=== PATIENT | female | born 1930 | race Two or more races ===

== ENCOUNTER 2017-01-30 17:54 | Emergency (ER) | payer OTHER, MEDICAID ==
[2017-01-30 18:03] VITALS: TEMP 98.2
[2017-01-30] MEDS ORDERED: NS 1,000 ML IV ONE ×2 (18:31→19:26)
--- NOTE | 2017-01-30 18:35 | EDPHY ---
H & P Stated Complaint: BGL 600 at [facility] Time Seen by Provider: 01/30/17 18:15 HPI/ROS: CHIEF COMPLAINT: High blood sugar HISTORY OF PRESENT ILLNESS: The patient is a 86-year-old female who was sent to the emergency department by Felice Sinah for high glucose. She states she has had a flu for the last week although her symptoms are now improving. She feels weak and achy and dizzy today. Her glucose was too high to read on the glucometer at the clinic up. She takes Levemir 12 units every morning. She has not had a fever. She denies chest pain. She does have a history of peripheral vascular disease and is status post left fem-pop bypass. Also hypertension and hypothyroidism. REVIEW OF SYSTEMS: Constitutional: See HPI EENTM: denies: blurred vision, double vision, nose congestion Respiratory: denies: cough, shortness of breath Cardiac: denies: chest pain, irregular heart rate, lightheadedness, palpitations Gastrointestinal/Abdominal: denies: abdominal pain, diarrhea, nausea, vomiting, blood streaked stools Genitourinary: denies: dysuria, frequency, hematuria, pain Musculoskeletal the see HPI Skin: denies: lesions, rash, jaundice, bruising Neurological: denies: headache, numbness, paresthesia, tingling, dizziness, weakness Hematologic/Lymphatic: denies: blood clots, easy bleeding, easy bruising Immunologic/allergic: denies: HIV/AIDS, transplant EXAM: GENERAL: The tearful, well-nourished and in no acute distress. HEAD: Atraumatic, normocephalic. EYES: Pupils equal round and reactive to light, extraocular movements intact, sclera anicteric, conjunctiva are normal. ENT: TMs normal, nares patent, oropharynx clear without exudates. Moist mucous membranes. NECK: Normal range of motion, supple without lymphadenopathy or JVD. LUNGS: Breath sounds clear to auscultation bilaterally and equal. No wheezes rales or rhonchi. HEART: Regular rate and rhythm without murmurs, rubs or gallops. ABDOMEN: Soft, nontender, normoactive bowel sounds. No guarding, no rebound. No masses appreciated. BACK: No CVA tenderness, no spinal tenderness, step-offs or deformities EXTREMITIES: Normal range of motion, no pitting or edema. No clubbing or cyanosis. NEUROLOGICAL: Cranial nerves II through XII grossly intact. Normal speech, normal gait. 5/5 strength, normal movement in all extremities, normal sensation PSYCH: He said SKIN: Warm, dry, normal turgor, no visible rashes or lesions. Source: Patient Exam Limitations: No limitations - Personal History Tetanus Vaccine Date: WITHIN 10 Y - Medical/Surgical History Hx Asthma: No Hx Chronic Respiratory Disease: No Hx Diabetes: Yes Hx Cardiac Disease: Yes Hx Renal Disease: No Hx Cirrhosis: No Hx Alcoholism: No Hx HIV/AIDS: No Hx Splenectomy or Spleen Trauma: No Other PMH: ortho surgery, hypothryroid, HTN, gastritis, diabetes - Family History Significant Family History: Diabetes, Hypertension - Social History Smoking Status: Never smoked Alcohol Use: Sober Drug Use: None Constitutional: Initial Vital Signs Temperature (C) 36.8 C 01/30/17 18:00 Heart Rate 85 01/30/17 18:00 Respiratory Rate 18 01/30/17 18:00 Blood Pressure 227/92 H 01/30/17 18:00 O2 Sat (%) 97 01/30/17 18:00 O2 Delivery Mode Room Air Allergies/Adverse Reactions: No Known Allergies Allergy (Verified 04/17/15 15:17) Home Medications: Medication Instructions Recorded Aspirin [Aspirin 81mg] 81 mg PO DAILY 11/18/11 Atorvastatin Calcium [Lipitor] 40 mg PO DAILY 11/18/11 GLIPIZIDE 10 mg PO BID 11/18/11 Levothyroxine 75 mcg PO DAILY@1000 11/18/11 [Levothyroxine,Synthroid] Lisinopril 20 mg PO DAILY 11/18/11 metFORMIN HCL [Glucophage 500 mg 1,000 mg PO BID 11/18/11 (*)] Calcitonin [Fortical (RX)] 200 units NASAL DAILY 02/28/12 Cephalexin [Keflex] 500 mg PO QID 10 Days 12/23/13 Pepcid 20 MG (OTC) 12/23/13 Citalopram 01/30/17 Injectable Insulin, Unknown 01/30/17 Medical Decision Making ED Course/Re-evaluation: Patient's glucose is elevated but she is not in DKA. I will treat with insulin and hydration and observe. 9:05 p.m. the patient is feeling much better. She no longer has body aches or nausea. She does have a mild headache. I will treat her with Toradol and will road test. I encouraged her to resume her normal insulin schedule tomorrow morning. She and her understand agree with this plan. The conversation was had with a professional vaccine customer representative. I will Prepare paperwork for discharge but Dr. Estrada is aware should any problems arise. Differential Diagnosis: Partial list of the Differential diagnosis considered include but were not limited to; hyperglycemia, dehydration, headache and although unlikely based on the history and physical exam, I also considered sepsis, infection, DKA, hyperosmolar. I discussed these differential diagnoses and the plan with the patient as well as the usual and expected course. The patient understands that the diagnosis is provisional and that in medicine we are not always correct and that further workup is often warranted. Usual and customary warnings were given. All of the patient's questions were answered. The patient was instructed to return to the emergency department should the symptoms at all worsen or return, otherwise to followup with the physician as we discussed. - Data Points Laboratory Results: Laboratory Results 01/30/17 18:35 01/30/17 18:35 01/30/17 01/30/17 20:32 18:35 POC Hgb 11.6 gm/dL L gm/dL (12.3-15.9) POC Hct 34 % L % (35.5-47.5) POC Sodium 146 mEq/L H mEq/L (134-144) Sodium 138 mEq/L mEq/L (134-144) POC Potassium 3.1 mEq/L L mEq/L (3.3-5.0) Potassium 4.4 mEq/L mEq/L (3.5-5.2) POC Chloride 110 mEq/L H mEq/L (96-108) Chloride 101 mEq/L mEq/L (97-110) Carbon Dioxide 22 mEq/l mEq/l (22-31) Anion Gap 15 mEq/L mEq/L (8-16) POC BUN 20 mg/dL mg/dL (7-23) BUN 27 mg/dL H mg/dL (7-23) Creatinine 0.6 mg/dL mg/dL (0.6-1.0) POC Creatinine 0.4 mg/dL L mg/dL (0.6-1.2) Estimated GFR > 60 Glucose 441 mg/dL H mg/dL (70-100) POC Glucose 134 mg/dL H mg/dL (70-100) Calcium 10.2 mg/dL mg/dL (8.5-10.4) Phosphorus 3.4 mg/dL mg/dL (2.5-4.5) Magnesium 1.6 mg/dL mg/dL (1.6-2.3) Beta-Hydroxybutyrate 0.39 mmol/L H mmol/L (0.02-0.27) TSH 0.038 uIU/mL L uIU/mL (0.465-4.680) Free T4 1.94 ng/dL ng/dL (0.59-2.19) Medications Given: Discontinued Medications Sodium Chloride (Ns) 1,000 mls @ 0 mls/hr IV ONCE ONE PRN Reason: Wide Open Stop: 01/30/17 18:32 Last Admin: 01/30/17 18:36 Dose: 1,000 mls Sodium Chloride (Ns) 1,000 mls @ 0 mls/hr IV ONCE ONE PRN Reason: Wide Open Stop: 01/30/17 19:27 Last Admin: 01/30/17 19:30 Dose: 1,000 mls Insulin Human Regular (Humulin R) 10 unit IVP EDNOW ONE Stop: 01/30/17 19:27 Last Admin: 01/30/17 19:31 Dose: 10 units Ketorolac Tromethamine (Toradol) 15 mg IVP EDNOW ONE Stop: 01/30/17 21:07 Last Admin: 01/30/17 21:15 Dose: 15 mg Lidocaine (Lidoderm 5%) 1 ea TD ONCE ONE Stop: 01/30/17 21:17 Last Admin: 01/30/17 21:35 Dose: 1 ea Miscellaneous Information (Patch Removal) 1 ea TD DAILY21 YOLI Stop: 07/30/17 20:59 Last Admin: 01/30/17 21:29 Dose: 1 ea Ondansetron HCl (Zofran) 4 mg IVP EDNOW ONE Stop: 01/30/17 21:07 Last Admin: 01/30/17 21:15 Dose: 4 mg Point of Care Test Results: 01/30/17 20:32 POC Sodium 146 H POC Potassium 3.1 L POC Chloride 110 H POC BUN 20 POC Creatinine 0.4 L POC Glucose 134 H Departure - Departure Disposition: Home, Routine, Self-Care Clinical Impression: Hyperglycemia due to type 2 diabetes mellitus Qualifiers: Diabetes mellitus nursing home insulin use: with adjunct faculty for medical terminology use Qualified Code(s): E11.65 - Type 2 diabetes mellitus with hyperglycemia; Z79.4 - halfway (current ) use of insulin Condition: Fair Instructions: Diabetic Hyperglycemia (ED) Referrals: Patient,NotPresent [Primary Care Provider] - As per Instructions Felice Sinha MD [Medical Doctor] - As per Instructions
[2017-01-30 18:43] LABS: % IMMATURE GRANULYOCYTES 0.3 % (0.0-1.1); ABSOLUTE IMMATURE GRANULOCYTES 0.02 10^3/uL (0.00-0.10); ADD DIFF? NO; ADD MORPH? NO; ADD SCAN? NO; ATYPICAL LYMPHOCYTE FLAG 20 (0-99); FRAGMENT RBC FLAG 0 (0-99); HEMATOCRIT 41.5 % (38.0-47.0); HEMOGLOBIN 14.6 g/dL (12.6-16.3); LEFT SHIFT FLG 0 (0-99); LIPEMIA HEMOLYSIS FLAG 90 (0-99); MEAN CELL HEMOGLOBIN 31.5 pg (27.9-34.1); MEAN CELL HEMOGLOBIN CONCENTR. 35.2 g/dL (32.4-36.7); MEAN CELL VOLUME 89.6 fL (81.5-99.8); MEAN PLATELET VOLUME 9.7 fL (8.7-11.7); PLATELET CLUMPS FLAG 0 (0-99); PLATELET COUNT 258 10^3/uL (150-400); RED BLOOD CELL COUNT 4.63 10^6/uL (4.18-5.33); RED CELL DISTRIBUTION WIDTH 13.1 % (11.5-15.2)
[2017-01-30 19:00] VITALS: O2SAT 96
[2017-01-30 19:01] LABS: ANION GAP 15 mEq/L (8-16); CALCIUM 10.2 mg/dL (8.5-10.4); CARBON DIOXIDE 22 mEq/l (22-31); CHLORIDE 101 mEq/L (97-110); CREATININE 0.6 mg/dL (0.6-1.0); GLOMERULAR FILTRATION RATE > 60; GLUCOSE 441 mg/dL (70-100); MAGNESIUM 1.6 mg/dL (1.6-2.3); POTASSIUM 4.4 mEq/L (3.5-5.2); SODIUM 138 mEq/L (134-144)
[2017-01-30] MEDS ORDERED: INSULIN REGULAR HUMAN 100 UNIT/ML IVP ONE (19:26)
[2017-01-30] MEDS ORDERED: INSULIN REGULAR HUMAN 100 UNIT/ML ONE (19:28)
[2017-01-30 20:40] LABS: B-HYDROXYBUTYRATE 0.39 mmol/L (0.02-0.27)
[2017-01-30 20:53] VITALS: PULSE 66; RESP 16
[2017-01-30] MEDS ORDERED: ONDANSETRON 4 MG/2 ML VIAL ONE (21:06)
[2017-01-30] MEDS ORDERED: KETOROLAC 15 MG/1 ML SDV ONE (21:06)
[2017-01-30] MEDS ORDERED: KETOROLAC 30 MG/1 ML SDV IVP ONE (21:06)
[2017-01-30] MEDS ORDERED: ONDANSETRON 4 MG/2 ML VIAL IVP ONE (21:06)
[2017-01-30] MEDS ORDERED: LIDOCAINE 5% 1 EA PATCH TD ONE (21:16)
[2017-01-30 21:31] VITALS: BP 182/79
[2017-01-31] MEDS ORDERED: PATCH REMOVAL 1 EA PATCH TD ONE (09:00)
[2017-01-31] MEDS ORDERED: PATCH REMOVAL 1 EA PATCH TD SCH (21:00)
== END 2017-01-30 21:41 | disposition home or self-care (01) ==
DX: E11.65 Type 2 diabetes mellitus with hyperglycemia (principal); I10 Essential (primary) hypertension; Z79.82 Long term (current) use of aspirin; Z79.4 Long term (current) use of insulin
CPT/HCPCS: 96361; 96374; 96375; 99284; J1815; J1885; J2405; 82947-QW

== ENCOUNTER 2019-02-19 12:44 | Emergency (ER) | payer OTHER, MEDICAID ==
--- NOTE | 2019-02-19 13:21 | EDPHY ---
H & P Time Seen by Provider: 02/19/19 13:06 HPI/ROS: Chief complaint. Elevated blood sugar HPI. Patient is a 88-year-old insulin-dependent diabetic. She takes metformin as well as insulin. She does not know her dose. She saw her physician in the office yesterday and blood work apparently showed elevated blood sugar and she was called and told to come to the emergency department this morning. She otherwise has no complaints. Apparently her PCP wanted her heart to be checked out as well. Patient has no chest discomfort or shortness of breath. Occasional abdominal bloating but no abdominal pain or vomiting or diarrhea. No fever or cough. ROS 10 systems were reviewed and negative with the exception of the elements mentioned in the history of present illness Past Medical/Surgical History: Hypothyroid, hypertension, gastritis, diabetes Social History: , nonsmoker, no alcohol Smoking Status: Never smoked Physical Exam: General Appearance: Alert pleasant well-developed female mild distress vital signs are stable Eyes: Pupils equal and round no pallor or injection. ENT, Mouth: Mucous membranes are moist. Respiratory: There are no retractions, lungs are clear to auscultation. Cardiovascular: Regular rate and rhythm. Gastrointestinal: Abdomen is soft and nontender, no masses, bowel sounds normal. Neurological: Awake and alert, sensory and motor exams grossly normal. Skin: Warm and dry, no rashes. Musculoskeletal: Neck is supple nontender. Extremities symmetrical, full range of motion. Psychiatric: Patient is oriented X 3, there is no agitation. Constitutional: Initial Vital Signs Heart Rate 71 02/19/19 12:45 Respiratory Rate 22 H 02/19/19 12:45 Blood Pressure 152/89 H 02/19/19 12:45 O2 Sat (%) 94 02/19/19 12:45 O2 Delivery Mode Room Air Allergies/Adverse Reactions: No Known Allergies Allergy (Verified 05/25/18 13:01) Home Medications: Medication Instructions Recorded Aspirin [Aspirin 81mg] 81 mg PO DAILY 11/18/11 Atorvastatin Calcium [Lipitor] 40 mg PO DAILY 11/18/11 GLIPIZIDE 10 mg PO BID 11/18/11 Levothyroxine 75 mcg PO DAILY@1000 11/18/11 [Levothyroxine,Synthroid] Lisinopril 20 mg PO DAILY 11/18/11 metFORMIN HCL [Glucophage 500 mg 1,000 mg PO BID 11/18/11 (*)] Calcitonin [Fortical (RX)] 200 units NASAL DAILY 02/28/12 Pepcid 20 MG (OTC) 12/23/13 Citalopram 01/30/17 Injectable Insulin, Unknown 01/30/17 Cephalexin [Keflex (*)] 500 mg PO QID #40 cap 05/25/18 Hydrocodone/APAP 5/325 [[place] 1 - 2 tab PO Q4H PRN #11 tab 05/25/18 5/325 (*)] Medical Decision Making - Diagnostics EKG Interpretation: EKG interpreted by me shows normal sinus rhythm normal interval. Left axis deviation. QRS is normal there is slight lateral ST depression. No elevation. No ectopy. Rate is [address] depression in lateral leads is new since last EKG December 2013 Procedures: IV normal saline Point of care glucose is 116 in the ED customer sales distributor is Saleem ED Course/Re-evaluation: Re-evaluation at 2:35 p.m. With customer sales distributor. The patient the lime supervisor the and I discussed laboratory evaluation. We discussed treatment plan including recommendation for cardiology evaluation for mild EKG changes. Otherwise you do not find any acute medical problem and I think the patient can be safely discharged. They expressed understanding and agreement Differential Diagnosis: I considered hyper and hypoglycemia. I considered DKA. Patient has mild changes on her EKG but negative troponin and no chest pain. Plan is cardiology follow-up - Data Points Laboratory Results: Laboratory Results 02/19/19 13:48 02/19/19 13:48 02/19/19 02/19/19 02/19/19 14:07 13:48 13:48 WBC 4.33 10^3/uL 10^3/uL (3.80-9.50) RBC 4.32 10^6/uL 10^6/uL (4.18-5.33) Hgb 12.3 g/dL L g/dL (12.6-16.3) Hct 39.3 % % (38.0-47.0) MCV 91.0 fL fL (81.5-99.8) MCH 28.5 pg pg (27.9-34.1) MCHC 31.3 g/dL L g/dL (32.4-36.7) RDW 14.6 % % (11.5-15.2) Plt Count 214 10^3/uL 10^3/uL (150-400) MPV 10.2 fL fL (8.7-11.7) Neut % (Auto) 62.1 % % (39.3-74.2) Lymph % (Auto) 27.3 % % (15.0-45.0) [place] % (Auto) 8.1 % % (4.5-13.0) Eos % (Auto) 1.8 % % (0.6-7.6) Baso % (Auto) 0.5 % % (0.3-1.7) Nucleat RBC Rel Count 0.0 % % (0.0-0.2) Absolute Neuts (auto) 2.69 10^3/uL 10^3/uL (1.70-6.50) Absolute Lymphs (auto) 1.18 10^3/uL 10^3/uL (1.00-3.00) Absolute Monos (auto) 0.35 10^3/uL 10^3/uL (0.30-0.80) Absolute Eos (auto) 0.08 10^3/uL 10^3/uL (0.03-0.40) Absolute Basos (auto) 0.02 10^3/uL 10^3/uL (0.02-0.10) Absolute Nucleated RBC 0.00 10^3/uL 10^3/uL (0-0.01) Immature Gran % 0.2 % % (0.0-1.1) Immature Gran # 0.01 10^3/uL 10^3/uL (0.00-0.10) Sodium 137 mEq/L mEq/L (135-145) Potassium 4.0 mEq/L mEq/L (3.5-5.2) Chloride 107 mEq/L mEq/L (97-110) Carbon Dioxide 19 mEq/l L mEq/l (22-31) Anion Gap 11 mEq/L mEq/L (6-14) BUN 20 mg/dL mg/dL (7-23) Creatinine 0.8 mg/dL mg/dL (0.6-1.0) Estimated GFR > 60 Glucose 98 mg/dL mg/dL (70-100) POC Glucose Calcium 9.0 mg/dL mg/dL (8.5-10.4) POC Troponin I 0.03 ng/mL ng/mL (0.00-0.08) 02/19/19 13:16 WBC RBC Hgb Hct MCV MCH MCHC RDW Plt Count MPV Neut % (Auto) Lymph % (Auto) [place] % (Auto) Eos % (Auto) Baso % (Auto) Nucleat RBC Rel Count Absolute Neuts (auto) Absolute Lymphs (auto) Absolute Monos (auto) Absolute Eos (auto) Absolute Basos (auto) Absolute Nucleated RBC Immature Gran % Immature Gran # Sodium Potassium Chloride Carbon Dioxide Anion Gap BUN Creatinine Estimated GFR Glucose POC Glucose 116 mg/dL H mg/dL (70-100) Calcium POC Troponin I Medications Given: Discontinued Medications Sodium Chloride (Ns) 1,000 mls @ 0 mls/hr IV EDNOW ONE; Wide Open PRN Reason: Protocol Stop: 02/19/19 14:02 Last Admin: 02/19/19 14:02 Dose: 1,000 mls Point of Care Test Results: Chemistry 02/19/19 02/19/19 14:07 13:16 POC Glucose 116 mg/dL H mg/dL (70-100) POC Troponin I 0.03 ng/mL ng/mL (0.00-0.08) Departure - Departure Disposition: Home, Routine, Self-Care Clinical Impression: Diabetes Qualifiers: Diabetes mellitus type: other specified (including LV) Diabetes mellitus retirement insulin use: unspecified retirement insulin use status Diabetes mellitus complication status: without complication Qualified Code(s): E13.9 - Other specified diabetes mellitus without complications Condition: Good Instructions: Hypoglycemia in a Person with Diabetes (ED) Additional Instructions: Continue medications and insulin as prescribed Make sure you eat after taking insulin and diabetes medication Return for worsening symptoms You have slight changes in your EKG compared with an EKG that was performed several years ago. I would like for you to follow up with Cardiology. Referrals: [facility] [Other] - 1-2 days without fail Seymour Gan MD [Medical Doctor] - 2-3 days, call for appt.
[2019-02-19] MEDS ORDERED: NS 1,000 ML IV ONE (14:01)
--- NOTE | 2019-02-19 14:02 | CPEKG ---
Test Reason : OPEN Blood Pressure : / mmHG Vent. Rate : 060 BPM Atrial Rate : 060 BPM P-R Int : 157 ms QRS Dur : 091 ms QT Int : 511 ms P-R-T Axes : 031 005 045 degrees QTc Int : 511 ms Sinus rhythm Repol abnrm suggests ischemia, anterolateral Prolonged QT interval Confirmed by Robin Cassidy ([id number]) on 02/19/2019 2:01:55 PM Referred By: ROBIN CASSIDY Confirmed By:Robin Cassidy
[2019-02-19 14:17] LABS: PLATELET COUNT 214 10^3/uL (150-400)
[2019-02-19 15:15] VITALS: BP 158/109
== END 2019-02-19 15:15 | disposition home or self-care (01) ==
DX: E11.9 Type 2 diabetes mellitus without complications (principal); R94.31 Abnormal electrocardiogram [ECG] [EKG]; E86.9 Volume depletion, unspecified; E03.9 Hypothyroidism, unspecified; I10 Essential (primary) hypertension; Z79.4 Long term (current) use of insulin; Z79.84 Long term (current) use of oral hypoglycemic drugs
CPT/HCPCS: 84484-ER

== ENCOUNTER 2019-02-26 11:46 | Inpatient (IN) | payer OTHER, MEDICAID ==
[2019-02-26] MEDS ORDERED: ONDANSETRON 4 MG/2 ML VIAL IVP PRN (12:17)
[2019-02-26] MEDS ORDERED: ONDANSETRON DISINTEGRATING 4 MG TAB PO PRN (12:17)
--- NOTE | 2019-02-26 12:59 | PDGENHP ---
History and Physical - Chief Complaint Hyperglycemia, bilateral lower extremity edema - History of Present Illness This is an 88-year-old female with history of insulin dependent diabetes, hypothyroidism, hypertension, and gastritis presenting as a direct admit from [facility] with concerns of bilateral lower extremity edema, nausea, dizziness and lightheadedness. She was seen in the emergency room on February 19 because apparently she saw her physician on February 18 with blood work showed elevated blood sugar and she was told to come to emergency room. Apparently at the same time her primary care doctor at [facility] wanted her heart to be checked out as well. During this emergency room visit an EKG was performed which showed a normal sinus rhythm with a left axis deviation and a slight lateral ST depression compared to her EKG from December 2013. It was decided during this visit for her to follow up with Cardiology which took place today, which they sent her here for further testing for noted above symptoms. She is primarily Jordanian-speaking, I communicated with the patient via, Lissette, an court interpreter. Patient denies chest pain or palpitations. She endorses 3 days worth of abdominal bloating and a nonpainful epigastric pulsating sensation; as well as lightheadedness and dizziness as if the room is spinning while she is upright. She also noticed bilateral lower extremity edema with the right side being worse than the left side; she denies cough. She also has been short of breath at all times; denies orthopnea and does not wear oxygen supplementation. She is being admitted for further workup, treatment and monitoring. History Information - Allergies/Home Medication List Allergies/Adverse Reactions: No Known Allergies Allergy (Verified 05/25/18 13:01) Home Medications: GLIPIZIDE 10 mg PO DAILY 11/18/11 [Last Taken 02/25/19] Calcitonin [Fortical (RX)] 200 units NASAL DAILY 02/28/12 [Last Taken 02/26/19] Famotidine [Pepcid 20 MG (*)] 20 mg PO DAILY 12/23/13 [Last Taken 02/26/19] Citalopram Hydrobromide [celeXA 10 MG] 10 mg PO DAILY 01/30/17 [Last Taken 02/26] Insulin Detemir [Levemir] 7 units SQ HS 02/26/19 [Last Taken 02/25/19] Insulin Detemir [Levemir] 17 unit SQ DAILY 02/26/19 [Last Taken 02/26/19] Levothyroxine [Synthroid 50 mcg (*)] 50 mcg PO DAILY06 02/26/19 [Last Taken ] Lisinopril [Zestril 20 mg (*)] 20 mg PO DAILY 02/26/19 [Last Taken 02/26/19] I have personally reviewed and updated: family history, medical history, social history, surgical history Past Medical History: Hypothyroidism, hypertension, gastritis, insulin- dependent diabetes - Surgical History Reports: no pertinent surgical hx - Family History Positive for: cancer (Mother had liver cancer; father by what is thought to be bad cold) - Social History Smoking Status: Never smoked Alcohol Use: None Drug Use: None Additional social history: She is , she lives in apartment with her son who was at bedside today Review of Systems Review of Systems: ROS: 10pt was reviewed & negative except for what was stated in HPI & below Physical Exam Physical Exam: Lab data and imaging were reviewed. Blood cell count: 6.35 Hemoglobin hematocrit: 12.6 and 38.9 Platelet count: 216 Sodium: 132 Potassium: 4.2 Chloride: 101 Carbon dioxide: 24 BUN/Cr: 15/0.7 TSH: 28.200, does have a history of hypothyroidism and is currently on 50 mcg of levothyroxine Temp Pulse Resp BP Pulse Ox 36.4 C 69 20 168/84 H 97 02/26/19 12:38 02/26/19 12:38 02/26/19 12:38 02/26/19 12:38 02/26/19 12:38 Constitutional: appears nourished, not in pain, other (Overweight, pleasant and cooperative female) Eyes: PERRL, anicteric sclera, EOMI Ears, Nose, Mouth, Throat: moist mucous membranes, hearing normal, ears appear normal, no oral mucosal ulcers Cardiovascular: regular rate and rhythym, no murmur, rub, or gallop, edema (Non- pitting edema BLE) Peripheral Pulses: 2+: dorsalis-pedis (R), dorsalis-pedis (L) Respiratory: no respiratory distress, no rales or rhonchi, clear to auscultation Gastrointestinal: normoactive bowel sounds, soft, non-tender abdomen, no palpable masses Genitourinary: no bladder fullness, no bladder tenderness Skin: warm, normal color, no rashes or abrasions, no fluctuance, no induration, No mottled Musculoskeletal: full muscle strength, no muscle tenderness, normal joint ROM, no joint effusions Neurologic: AAOx3, sensation intact bilaterally, CN II-XII Intact Psychiatric: interacting appropriately, not anxious, not encephalopathic, thought process linear Lymph, Heme, Immunologic: no cervical LAD, no supraclavicular LAD Lab Data & Imaging Review 02/26/19 13:00 02/26/19 13:00 Assessment & Plan Plan: This is an 88-year-old female with history of insulin-dependent diabetes and hypertension presenting as a direct admit from the [facility] with 2- 3 days worth of bilateral lower extremity edema, shortness of breath at all times, and lightheadedness while upright. Her vital signs are the following: Blood pressure 168/84, heart rate 69, respirations 20, temperature 36.4 degrees , and oxygen saturation at 97% on room air. #Bilateral lower extremity edema #Shortness of breath #Lightheadedness #IDDM #HTN #Hypothyroidism #Hyponatremia Plan: -Cardiology consulted -Orthostatic vitals 1 time -Echo complete pending -Plan for Lexiscan tomorrow -Lipid panel in the morning -Insulin sliding scale in house, glucose checks 3 times before meals; holding oral glycemic medications for now; A1c is pending -Physical therapy and Occupational therapy to evaluate and treat patient -Continuing home medications including Levemir, levothyroxine, lisinopril, Pepcid, and Celexa; holding glipizide -TSH 28.200; checking free T4 and total T3 -Mild hyponatremia (132); encourage fluids and food with sodium and will recheck sodium and creatinine in the morning Diet: Cardiac VTE ppx: Lovenox subq Code: Full Dispo: Admit to obs
[2019-02-26 13:16] LABS: PLATELET COUNT 216 10^3/uL (150-400)
--- NOTE | 2019-02-26 13:28 | ASMTCMCOM ---
CM Note CM Note Notes: Pt is a 88 y/o female admitted for hyperglycemia and bilateral lower extremity edema. Pt is tajik speaking only and requires an science interpreter. Therapies have been ordered and awaiting recommendations. Cards has been consulted. Needs are TBD at this time. CM to follow. Plan: TBD Date Signed: 02/26/2019 01:28 PM Electronically Signed By:CATHERINE Claudio
[2019-02-26] MEDS: D50W 25 GM/50 ML SYR IVP PRN (14:34)
[2019-02-26] MEDS ORDERED: FUROSEMIDE 40 MG/4 ML VIAL IVP ONE (15:11)
--- NOTE | 2019-02-26 15:23 | ASMTCMCOM ---
CM Note CM Note Notes: CM met w/ pt, pts two daughters who live out of town and Lissette, the home economics expert. Pt lives w/ her son. The daughters are requesting that pt has a JIGSAWYER to help bathe pt. They are agreeable to a referral sent to [facility]. Referral sent to [facility] and they are able to accept. CM sent a referral to [facility]. Pts family is interested in 5 free meals on wheels after this hospitalization. Therapies are pending. Family may be curious about meal preparation. CM could apply for HCBS services but informed them that it takes a month or two to establish services. Therapies are pending. CM informed family that pt may need SNF but it is unclear at this time. CM to follow. Date Signed: 02/26/2019 03:22 PM Electronically Signed By:CATHERINE Claudio
--- NOTE | 2019-02-26 15:32 | PDCARPN ---
Cardiology Progress Note Chief Complaint: likely CHF Assessment/Plan: Assessment: 88F PMH PVD, DM, htn, hypoT, direct admitted after being seen at [facility] today. PVD history includes L fem-pop [place] [address] Amado. P/w 3 weeks of worsening dyspnea, pnd/orthopnea, SHIRA. Chart reviewed. Pt new to me. 12-lead ECG from 02/20/19 shows SR, ZAKIA, QTc 511, questionable inferior Qs, and diffuse ST-T w abnormalities. Rales in bilateral bases #. likely CHF: echo and NTpBNP pending start IV lasix obtain CXR agree with MPI in AM #. PVD: no symptoms of claudications, nonhealing wounds/ulcers start ASA check lipids #. htn: BP appears poorly controlled given prolonged QTc, start Metoprolol succinate today Plan: - Start Lasix - Await further testing 02/26/19 15:25 Subjective: + DAVIES, pnd/orthopnea, SHIRA. Ate argentine food last night. Symptom onset 2-3 weeks with worsening in past 3 days. Denies claudications but gets short of breath on minimal exertion. No nonhealing ulcers. No f/c, dysuria, cough, cp. Objective: Vital Signs (8 Hrs) Temp Pulse Pulse Pulse Pulse Resp BP 02/26/19 13:18 97.2 F 69 79 77 69 16 157/79 H 02/26/19 12:38 97.5 F 69 20 168/84 H BP BP BP Pulse Ox 02/26/19 13:18 155/76 H 162/90 H 157/79 H 93 02/26/19 12:38 97 Intake/Output (24 Hrs) 02/25/19 02/26/19 02/27/19 05:59 05:59 05:59 Other: Weight 51.8 kg Result Diagrams: 02/26/19 13:00 02/26/19 13:00 ICD10 Worksheet Patient Problems: Problems Problem Status Onset Hyperglycemia due to type 2 diabetes mellitus Acute
--- NOTE | 2019-02-26 16:09 | HOSPPROG ---
Hospitalist Progress Note Assessment/Plan: patient seen/examined/discussed w KAYDEN Montalvo. 88 yo F w dm/hypothyroid here w edema 1. echo pending 2. increase levothyroxine 3. diurese Objective: Vital Signs Temp Pulse Resp BP Pulse Ox 36.2 C 69 16 157/79 H 93 02/26/19 13:18 02/26/19 13:18 02/26/19 13:18 02/26/19 13:18 02/26/19 13:18 Laboratory Results 02/26/19 13:00 02/26/19 13:00 ICD10 Worksheet Patient Problems: Problems Problem Status Onset Hyperglycemia due to type 2 diabetes mellitus Acute
[2019-02-26] MEDS: ASPIRIN EC 81 MG TAB PO SCH (16:38)
[2019-02-26] MEDS: METOPROLOL SUCCINATE XR 25 MG TAB PO SCH (16:38)
--- NOTE | 2019-02-26 17:31 | ECHO ---
[email or web address] [address] Main: [phone] Echocardiography Examination Transthoracic Name: UMBERTO ALMANZAR MR#: [id number] Study Date: 02/26/2019 Study Time: 01:39 PM Date of : 1930 Age: 88 year(s) Height: ( ) Weight: ( ) BSA: Gender: Female Examination: Echo Contrast: Image Quality: Adequate Rhythm: Heart Rate: BP: 162 mmHg/90 mmHg Indication: BLE Edema Procedure Staff Referring Physician: Sports Director: Rocío Gonzalez RDCS Reading Physician: Demario Dyer MD Requesting Provider: Ordering Physician: Caitlin Montalov Indication: BLE Edema No height/weight available - patient does not speak Pashto Measurements Chambers AV/MV Label Value Normal Value Label Value Normal Value LVOTd 1.6 cm (1.8cm - 2cm) AV PGmax 5 mmHg LVOT VTI 11.2 cm (18cm - 22cm) AV PGmean 3 mmHg LVDd, 2D 5 cm (3.9cm - 5.3cm) AV Vmax 1.09 m/s LVDs, 2D 3.8 cm (2.1cm - 4cm) TRE (VTI) 0.9 cm2 IVSd, 2D 0.7 cm (0.6cm - 1.1cm) MV E Vmax 1.21 m/s LVPWd, 2D 0.8 cm MV A Vmax 0.63 m/s LVEF, BP 25 % (55% - 70%) MV E/A 1.92 LVEF, 2D 48 % (54% - 74%) MV E/E' lateral 17.5 LVOT PGmean 1 mmHg MV E/E' septal 26.4 (0.45 - 1.25) LVOT Vmean 0.45 m/s MV DT 155 ms RVDd, 2D 2.8 cm (1.9cm - 3.8cm) MV E' septal 0.05 m/s LA Volume, BP 71 ml (22ml - 52ml) MV PHT 0.05 s LADs, 2D 3.8 cm (2.7cm - 3.8cm) MVA PHT 4.9 cm2 RA Area 15.4 cm2 MR Reg. Volume 20 ml Additional Vessels MR Vmax 5.03 m/s Label Value Normal Value MR VTI 163 cm AoAsc 2.8 cm MR (ERO) 0.12 cm2 Patient: UMBERTO ALMANZAR Study Date: 02/26/2019 Page 1 of 3 01:39 PM AoRoot, 2D 2.3 cm (1.4cm - 2.6cm) MV E' lateral 0.07 m/s IVC 1.3 cm (1.2cm - 2.3cm) MR PISA Radius 0.5 cm MV E/E' mean 20.17 MR PISA Alias V. 38.5 cm/s MV PHT 45 ms MV E' mean 0.06 m/s TV/PV Label Value Normal Value TR Pmax 39 mmHg TR Vmax 3.14 m/s PV PGmax 1 mmHg PV Vmax, Caliper 0.57 m/s (0.6m/s - 0.9m/s) Conclusions 1. Left ventricle is normal in size. There is global left ventricular systolic dysfunction. The ejection fraction is 20-25%. 2. The aortic valve is trileaflet. The leaflets are thickened and sclerotic. There is no aortic stenosis. There is trivial aortic insufficiency. 3. there is moderate mitral annular calcification. The leaflets appear structurally normal. There is moderate mitral regurgitation. 4. The pulmonary artery pressure estimate is 40 mm of mercury. 5. There is a trivial pericardial effusion. 6. No old studies for comparison. Findings Left Ventricle: Left ventricle is normal in size. Global hypokinesis of the left ventricle. The ejection fraction, measured by Simpsons method, is 25 %. EF range is estimated at 20 % - 25 %. Left ventricle wall thickness is normal. Grade II Diastolic Dysfunction. Right Atrium: Prominent chiari network. The right atrium is normal in size. Mitral Valve: Mitral valve appears structurally normal. Moderate mitral regurgitation. No mitral valve stenosis. There is mitral annular calcification. Aortic Valve: Aortic leaflets are structurally normal. Trivial aortic regurgitation is present. Aortic leaflets exhibit calcification. Tricuspid Valve: Tricuspid valve leaflets are structurally normal. Moderate tricuspid regurgitation. No tricuspid valve stenosis. Pulmonic Valve: Pulmonic leaflets are structurally normal. Mild pulmonic valve regurgitation is present. Aorta: The aortic root size in 2D measures 2.3 cm. The ascending aorta measures 2.8 cm. Aorta Measurements AoRoot, 2D is 2.3 cm. IVC: The inferior vena cava is normal in size. Pericardium: Trivial pericardial effusion. Exam Details Procedure Ordered: Echo Procedure Status: Routine study Patient: UMBERTO ALMANZAR Study Date: 02/26/2019 Page 2 of 3 01:39 PM Image Quality: Adequate Facility Location: Cardiac Echo 1 (No Signature Object) Patient: UMBERTO ALMANZAR Study Date: 02/26/2019 Page 3 of 3 01:39 PM [id number]
[2019-02-26] MEDS: INSULIN LISPRO 100 UNIT/ML SC SCH (19:00)
[2019-02-27] MEDS ORDERED: LEVOTHYROXINE 50 MCG TAB PO SCH (06:00)
[2019-02-27] MEDS: LEVOTHYROXINE 88 MCG TAB PO SCH (07:09)
[2019-02-27] MEDS: INSULIN LISPRO 100 UNIT/ML SC SCH ×3 (08:50→17:42)
[2019-02-27] MEDS ORDERED: REGADENOSON 0.4 MG/5 ML SYR IVP ONE (09:06)
--- NOTE | 2019-02-27 10:32 | HOSPPROG ---
Hospitalist Progress Note Assessment/Plan: 88 yo F w dm, pvd here w acute systolic heart failure sCHF: etiology of depressed LVEF unclear certainly at risk for ischemic heart disease had nuc today diurese long acting bb started ? cad: nuc pending check lipid panel needs antiplatelet pvd: h/o fem pop dm: hypoglycemic lantus being held not DM 1 follow hypothyroid: underreplaced levothyroxine increased to 88 hyponatremia: hypervolemic hyponatremia follow w diuresis needs low Na diet w chf proph: lmwh dispo: inpt Subjective: case d/w araceli ponce, cardiology PA. echo showed global LV systolic dysfunction, ef 20% Objective: Vital Signs Temp Pulse Resp BP Pulse Ox 36.3 C 57 L 18 119/68 99 02/27/19 08:00 02/27/19 08:00 02/27/19 08:00 02/27/19 08:00 02/27/19 08:00 Laboratory Results 02/26/19 13:00 02/27/19 03:22 02/26/19 02/27/19 02/28/19 05:59 05:59 05:59 Intake Total 650 Output Total 1725 Balance -1075 - Physical Exam Constitutional: no apparent distress, appears nourished Eyes: PERRL, anicteric sclera Ears, Nose, Mouth, Throat: moist mucous membranes, hearing normal Cardiovascular: regular rate and rhythym, no murmur, rub, or gallop, edema, No systolic murmur Respiratory: no respiratory distress, no rales or rhonchi Gastrointestinal: normoactive bowel sounds, soft, non-tender abdomen Genitourinary: no bladder fullness, No malave in urethra Skin: warm, normal color Musculoskeletal: full muscle strength Neurologic: AAOx3 Psychiatric: interacting appropriately ICD10 Worksheet Patient Problems: Problems Problem Status Onset Hyperglycemia due to type 2 diabetes mellitus Acute
--- NOTE | 2019-02-27 10:39 | PDCARST ---
CAR Stress Test Results Type of Stress Test: Lexiscan stress test Indication: SCHF Description of Procedure: After informed consent was obtained, pt was established to ECG, blood pressure, HR and oximetry monitoring. STRESS EKG AND HEMODYNAMIC DATA. Resting heart rate: 59 BPM. Resting ECG: SR. Resting blood pressure: 136/78 mmHg. O2 saturation at rest: 98%. Peak heart rate: 64 BPM. Peak blood pressure: 126/76 mmHg. Arrhythmias: none. Symptoms: The patient experienced no typical symptoms of angina during stress or recovery. Stress/Infusion ECG: No change in rhythm with no significant ST/T wave changes. Stress/infusion O2 saturation: 98% Impression: Uneventful Lexiscan infusion. Conclusion: Await nuclear images.
[2019-02-27] MEDS: LISINOPRIL 20 MG TAB PO SCH (10:41)
[2019-02-27] MEDS: ASPIRIN EC 81 MG TAB PO SCH (10:41)
[2019-02-27] MEDS: ACETAMINOPHEN 325 MG TAB PO PRN (10:41)
[2019-02-27] MEDS: FAMOTIDINE 20 MG TAB PO SCH (10:41)
[2019-02-27] MEDS: FUROSEMIDE 40 MG/4 ML VIAL IVP SCH ×2 (10:42→14:36)
[2019-02-27] MEDS: ENOXAPARIN 30 MG/0.3 ML SYR SC SCH (10:42)
[2019-02-27] MEDS: CITALOPRAM 20 MG TAB PO SCH (10:42)
[2019-02-27] MEDS: INSULIN GLARGINE 100 UNITS/ML UNIT SC SCH ×2 (10:43→22:40)
[2019-02-27] MEDS: CALCITONIN 200 UNITS/SPRAY INH NS SCH (10:43)
[2019-02-27] MEDS: METOPROLOL SUCCINATE XR 25 MG TAB PO SCH (10:58)
--- NOTE | 2019-02-27 12:31 | PDCARPN ---
Cardiology Progress Note Chief Complaint: SCHF Assessment/Plan: Assessment: 88F PMH PVD, DM, htn, hypoT, direct admitted after being seen at [facility] today. PVD history includes [place] fem[place] [address] [place]ado. P/w 3 weeks of worsening dyspnea, pnd/orthopnea, SHIRA. Chart reviewed. Pt new to me. 12-lead ECG from 02/20/19 shows SR, ZAKIA, QTc 511, questionable inferior Qs, and diffuse ST-T w abnormalities. Echo from this admission shows LVEF 20-25%, mod MR, RVSP 40. Nuclear stress test obtained shows EF 24% with extensive infarct involving inf apex, inf/ant apex, and inferoseptal wall. #. SCHF: NYHA FC III-IV on presentation continue IV diuresis as she is still quite hypervolemic MPI highly suspicious for multi-vessel CAD will initiate statin therapy we discussed options of med management versus invasive strategy not a good surgical candidate and patient states she would not want OHS she will discuss with family +/- [facility] R/B/A of [facility] reviewed #. PVD: no symptoms of claudications, nonhealing wounds/ulcers ASA and statin #. htn: BP appears at goal Plan: - add Atorvastatin - consider adding Spironolactone - family to discuss [facility] 02/27/19 12:26 Subjective: Feeling improved. Dyspnea on exertion. No cp. Objective: Vital Signs (8 Hrs) Temp Pulse Resp BP Pulse Ox 02/27/19 12:00 97.3 F 59 L 18 117/63 99 02/27/19 08:00 97.4 F 57 L 18 119/68 99 Intake/Output (24 Hrs) 02/26/19 02/27/19 02/28/19 05:59 05:59 05:59 Intake Total 650 Output Total 1725 Balance -1075 Intake: Oral (ml) 650 Output: Urine (ml) 1725 Bedside Commode 1725 Other: Weight 51.8 kg Intake Quantity Yes Sufficient Number of Voids Bedside Commode 2 Result Diagrams: 02/26/19 13:00 02/27/19 03:22 Telemetry: reviewed SR - Physical Exam Constitutional: no apparent distress Eyes: anicteric sclera Ears, Nose, Mouth, Throat: moist mucous membranes Cardiovascular: regular rate and rhythm, jugular vein distention Respiratory: reduced air movement, inspiratory crackles Gastrointestinal: normoactive bowel sounds Genitourinary: No malave in urethra Skin: other (2+ pitting edema) Psychiatric: cooperative ICD10 Worksheet Patient Problems: Problems Problem Status Onset Hyperglycemia due to type 2 diabetes mellitus Acute
--- NOTE | 2019-02-27 15:36 | PDMN ---
Medical Necessity Medical necessity: Change to IP, as of 02/27/19, per MD & MCG M-190; los >2 mn for ongoing management of acute systolic heart failure w/hypervolemic hyponatremia; risk for ischemic heart disease; requiring further monitoring & IV diuresis/med management; comorbid advanced age, PVD, diabetes
[2019-02-28] MEDS: LEVOTHYROXINE 88 MCG TAB PO SCH (06:22)
[2019-02-28] MEDS: INSULIN LISPRO 100 UNIT/ML SC SCH (07:55)
[2019-02-28] MEDS ORDERED: DIAZEPAM 5 MG TAB PO ONE (08:59)
[2019-02-28] MEDS ORDERED: NITROGLYCERIN 0.4 MG BTL SL PRN (08:59)
[2019-02-28] MEDS ORDERED: diphenhydrAMINE 25 MG CAP PO ONE (08:59)
[2019-02-28] MEDS ORDERED: INSULIN LISPRO 100 UNIT/ML SC ONE (09:06)
--- NOTE | 2019-02-28 09:09 | HOSPPROG ---
Hospitalist Progress Note Assessment/Plan: DIAGNOSES: * Acute systolic congestive heart failure, new onset * Reduced ejection fraction at 24% with multiple wall motion abnormalities and previous infarct * Known peripheral vascular disease with previous bypass to left leg * Diabetes mellitus * Hypertension, essential on treatment * Hypothyroidism on replacement I met with the patient with her family in site interpreter today and reviewed her current diagnoses and options for further diagnostic assessments again. I answered many questions for the patient and family. The patient is interested in angiography and stents if they would be indicated. At this point she remains not very interested in open heart surgery and understands that she would be at higher risk and may be have trouble recovering. PLANS: * Continue diuresis * Recheck renal function and electrolytes * I reviewed her case with Lilly Saucedo and Dr. Ti Deluna of Cardiology today ; will proceed with coronary angiography probably later today * Continue to follow sugars closely and adjust treatment as indicated; sugars have been on the low side here so far and she has not been given her oral glipizide also her p.m. Lantus was held last night. Given that she will be NPO I am holding her daytime Lantus now for today Seen by me on hospitalist rounds and multidisciplinary rounds today SUBJECTIVE: Patient still with some dyspnea, feels somewhat better with her breathing, also her abdomen feels less distended and she is finding it easier to eat breakfast this morning No angina symptoms OBJECTIVE Vitals reviewed: Stable without fever Telephonic Nurse, my review: Sinus Good diuresis out overnight by I&O measures Exam: alert oriented skin warm dry color ok resps not labored lungs few bibasilar rales heart regular abd soft nondistended nontender, bowel sounds present limbs warm, still with bilateral pitting edema but some improvement since yesterday iv site ok Lab data: Basic met panel is pending at this time Objective: Vital Signs Temp Pulse Resp BP Pulse Ox 36.7 C 58 L 20 127/74 H 94 02/28/19 04:00 02/28/19 04:00 02/28/19 04:00 02/28/19 04:00 02/28/19 04:00 Laboratory Results 02/26/19 13:00 02/27/19 03:22 02/27/19 02/28/19 03/01/19 06:59 06:59 06:59 Intake Total 650 660 Output Total 1725 Balance -1075 660 - Time Spent With Patient Time Spent with Patient: greater than 35 minutes Time Spent with Patient: Greater than 35 minutes spent on this patients care, greater than 50% of time spent counseling, educating, and coordinating care regarding the above mentioned plan. ICD10 Worksheet Patient Problems: Problems Problem Status Onset Chronic Disease Mgmt/Transitional Care Acute Hyperglycemia due to type 2 diabetes mellitus Acute
[2019-02-28] MEDS: METOPROLOL SUCCINATE XR 25 MG TAB PO SCH (09:15)
[2019-02-28] MEDS: LISINOPRIL 20 MG TAB PO SCH (09:16)
[2019-02-28] MEDS: FAMOTIDINE 20 MG TAB PO SCH (09:16)
[2019-02-28] MEDS: ATORVASTATIN CALCIUM 10 MG TAB PO SCH (09:16)
[2019-02-28] MEDS: CITALOPRAM 20 MG TAB PO SCH (09:16)
[2019-02-28] MEDS: FUROSEMIDE 40 MG/4 ML VIAL IVP SCH ×2 (09:16→16:38)
--- NOTE | 2019-02-28 09:19 | PDCARPN ---
Cardiology Progress Note Chief Complaint: SCHF Assessment/Plan: Assessment: 88F PMH PVD, DM, htn, hypoT, direct admitted after being seen at [facility] today. PVD history includes L fem-pop [place] [address] Amado. P/w 3 weeks of worsening dyspnea, pnd/orthopnea, SHIRA. Chart reviewed. Pt new to me. 12-lead ECG from 02/20/19 shows SR, ZAKIA, QTc 511, questionable inferior Qs, and diffuse ST-T w abnormalities. Echo from this admission shows LVEF 20-25%, mod MR, RVSP 40. Nuclear stress test obtained shows EF 24% with extensive infarct involving inf apex, inf/ant apex, and inferoseptal wall. #. SCHF: NYHA FC III-IV on presentation continue IV diuresis as she is still hypervolemic but improving no more PND/orthopnea MPI highly suspicious for multi-vessel CAD statin initiated today we discussed options of med management versus invasive strategy not a good surgical candidate and patient states she would not want OHS [facility] today R/B/A of [facility] reviewed #. PVD: no symptoms of claudications, nonhealing wounds/ulcers ASA and statin #. htn: BP appears at goal Plan: -[facility] today 02/28/19 09:17 Subjective: Still fatigued and DAVIES. No more pnd/orthopnea. Edema improving. Objective: Vital Signs (8 Hrs) Temp Pulse Resp BP Pulse Ox 02/28/19 04:00 98.1 F 58 L 20 127/74 H 94 Intake/Output (24 Hrs) 02/27/19 02/28/19 03/01/19 05:59 05:59 05:59 Intake Total 650 660 Output Total 1725 Balance -1075 660 Intake: Oral (ml) 650 660 Output: Urine (ml) 1725 Bedside Commode 1725 Other: Weight 51.8 kg 49.4 kg Intake Quantity Yes Sufficient Output Comment Toilet per pt family Number of Voids Bedside Commode 2 Toilet 3 Number of Stools Toilet 1 Result Diagrams: 02/26/19 13:00 02/27/19 03:22 Telemetry: SB - Physical Exam Constitutional: no apparent distress Eyes: anicteric sclera Cardiovascular: regular rate and rhythm Respiratory: reduced air movement, other (crackles improving) Gastrointestinal: normoactive bowel sounds Skin: no rashes, no abrasions, other (1-2+ edema) Neurologic: AAOx3 Psychiatric: cooperative, interactive ICD10 Worksheet Patient Problems: Problems Problem Status Onset Chronic Disease Mgmt/Transitional Care Acute Hyperglycemia due to type 2 diabetes mellitus Acute
[2019-02-28 10:11] LABS: PLATELET COUNT 219 10^3/uL (150-400)
[2019-02-28 10:13] LABS: INR 1.24 (0.83-1.16); PROTIME(PATIENT) 15.1 SEC (12.0-15.0)
[2019-02-28] MEDS: ASPIRIN EC 81 MG TAB PO SCH (10:28)
[2019-02-28] MEDS: CALCITONIN 200 UNITS/SPRAY INH NS SCH (11:01)
[2019-02-28] MEDS: INSULIN GLARGINE 100 UNITS/ML UNIT SC SCH ×2 (11:02→22:32)
[2019-02-28] MEDS: ENOXAPARIN 30 MG/0.3 ML SYR SC SCH (11:02)
[2019-02-28] MEDS ORDERED: fentaNYL 100 MCG/2 ML INJ ONE (12:41)
[2019-02-28] MEDS ORDERED: IOPAMIDOL (ISOVUE-370) 150 ML BTL IV ONE (12:41)
[2019-02-28] MEDS ORDERED: MIDAZOLAM 2 MG/2 ML VIAL ONE (12:41)
[2019-02-28] MEDS ORDERED: LIDOCAINE 1% 300 MG/30 ML SDV ONE (12:41)
--- NOTE | 2019-02-28 13:17 | PDPROPOC ---
Sedation Plan of Care Sedation Plan of Care: mental status noted, patient educated of risks, benefits , alternatives, patient can tolerate sedation ASA Classification: ASA 2 Planned drugs: fentanyl, midazolam Mallampati Score: Class 2 Mallampati Reference Image: Patient passed 3-3-2 rule?: Yes
--- NOTE | 2019-02-28 13:21 | PDHPUP ---
History & Physical Update H&P update statement: This history and physical update is based on an assessment of the patient which was completed after admission or registration (within 24 hours), but prior to the surgery/procedure. Pt presents for [facility] in the setting of new onset of systolic CHF with EF 25% with abnormal nuc stress and multiple cad risk factors. Consents obtained via wax ball knock out worker. H&P update: H&P reviewed & patient examined, no change in patient's condition since H&P completed
[2019-02-28] MEDS ORDERED: D50W 25 GM/50 ML VIAL ONE (15:05)
--- NOTE | 2019-02-28 16:07 | ASMTCMCOM ---
CM Note CM Note Notes: Pt and pts family is requesting for pts two sons to come from [place]. Letter written and given to the family/signed by Dr. Quintero. PT is recommending HC. CM to follow. Plan: [facility]; PT, OT, RN, [employer] Date Signed: 02/28/2019 04:06 PM Electronically Signed By:CATHERINE Claudio
[2019-02-28] MEDS: D50W 25 GM/50 ML SYR IVP PRN (17:20)
[2019-02-28] MEDS ORDERED: ATROPINE SULFATE 1 MG/10 ML SYR IVP PRN (17:51)
--- NOTE | 2019-02-28 17:51 | ASMTCMCOM ---
CM Note CM Note Notes: Referral made to [facility] per MD request. DC Plan: TBD Date Signed: 02/28/2019 05:51 PM Electronically Signed By:Mikala Trujillo RN
[2019-02-28] MEDS: ACETAMINOPHEN 325 MG TAB PO PRN (23:44)
--- NOTE | 2019-03-01 01:24 | CPIP ---
[f rep st] INVASIVE CARDIAC PROCEDURE DATE OF PROCEDURE: 02/28/2019 PROCEDURE: Cardiac catheterization. INDICATION FOR PROCEDURE: New onset of ischemic cardiomyopathy with [place] Heart Association class III systolic congestive heart failure with LVEF of 20% of 25% with markedly abnormal nuclear stress test with evidence of anterior and lateral wall infarct. DESCRIPTION OF PROCEDURE: After informed consent was obtained for diagnostic left heart catheterizat ion and intervention through supervisor tree trimming services at [facility], patient was brought t o the cardiac catheterization lab. After appropriate level of sedation was achieved, patient had a 6 -[place] catheter placed via the micropuncture modified Seldinger technique without difficulty. JL3.5 catheter was used to cannulate left main. A single image of the left main and left coronary anatomy was obtained secondary to development of ST-elevation and reciprocal ST-segment depressions and evid ence of severe left-sided coronary disease. JL3.5 catheter was exchanged over a wire for JR4 catheter. JR4 catheter was unable to cannulate the right coronary artery. This was exchanged over a guidewire for a Herman right catheter. Herman right catheter was able to locate ostium of the right coronary artery demonstrating complete and tota l occlusion of the right coronary artery. The Herman right catheter was removed over a guidewire. Decision was made to pursue no further imaging in the setting of severe 3-vessel coronary artery dise ase with ST-segment elevation and reciprocal depression with cannulation of the left main. FINDINGS: 1. Left main demonstrates 80% proximal stenosis and 90% distal stenosis. 2. Left anterior descending ostial chronic total occlusion. 3. Left circumflex vessel: 70% proximal stenosis. Second obtuse marginal branch is a moderate-size d vessel with 80% ostial stenosis. There is a 90% mid stenosis of the circumflex vessel. 4. Right coronary artery totally occluded. 5. LVEDP 39 mmHg when crossing the aortic valve. No left ventriculogram was performed. 6. Right common femoral artery angiography was obtained demonstrating appropriate sheath placement. However, in the setting of evidence of significant peripheral vascular disease in the right lower ex tremity, decision was made for manual pressure. CONCLUSION: 1. Severe 3-vessel coronary artery disease including left main. 2. Chronic total occlusion of the left anterior descending. 3. Chronic total occlusion of the right coronary artery. 4. Severe stenosis in the proximal mid portion of the circumflex and second obtuse marginal branch. SUMMARY: Patient's ECG changes were marked with cannulation of the left main. Given the extensive n ature of her coronary disease, I thought further intervention was too high risk. She has refused byp ass surgery. I have reviewed these images in detail with my colleague, Dr. Dyer. Would not recomm end pursuing percutaneous coronary intervention would recommend maximizing medical therapy. /[id number]/MODL
[2019-03-01] MEDS: LEVOTHYROXINE 88 MCG TAB PO SCH (08:15)
[2019-03-01] MEDS: ASPIRIN EC 81 MG TAB PO SCH (10:04)
[2019-03-01] MEDS: CITALOPRAM 20 MG TAB PO SCH (10:04)
[2019-03-01] MEDS: ATORVASTATIN CALCIUM 10 MG TAB PO SCH (10:04)
[2019-03-01] MEDS: FAMOTIDINE 20 MG TAB PO SCH (10:05)
[2019-03-01] MEDS: ENOXAPARIN 30 MG/0.3 ML SYR SC SCH (10:05)
[2019-03-01] MEDS: LISINOPRIL 20 MG TAB PO SCH (10:05)
[2019-03-01] MEDS: FUROSEMIDE 40 MG/4 ML VIAL IVP SCH ×2 (10:05→15:21)
[2019-03-01] MEDS: INSULIN GLARGINE 100 UNITS/ML UNIT SC SCH (10:34)
[2019-03-01] MEDS: CALCITONIN 200 UNITS/SPRAY INH NS SCH ×2 (10:52→11:09)
[2019-03-01] MEDS ORDERED: METOPROLOL SUCCINATE XR 25 MG TAB PO SCH (11:30)
[2019-03-01] MEDS: METOPROLOL SUCCINATE XR 25 MG TAB PO SCH ×2 (11:32→12:27)
--- NOTE | 2019-03-01 11:45 | ASMTCMCOM ---
CM Note CM Note Notes: CM spoke with RN and Dr. Quintero who feel Palliative Care Consult in the community would be most appropriate at this time. Family is aware. Per RN, likely discharge tomorrow with [facility] and [facility] PT/OT/RN. CM to follow. Date Signed: 03/01/2019 11:44 AM Electronically Signed By:CATHERINE Roth
--- NOTE | 2019-03-01 12:00 | PDCARPN ---
Cardiology Progress Note Chief Complaint: SCHF Assessment/Plan: Assessment: 88F PMH PVD, DM, htn, hypoT, direct admitted after being seen at [facility] on 02/26/19. PVD history includes L fem[place] [address] Amado. P/w 3 weeks of worsening dyspnea, pnd/orthopnea, SHIRA. Chart reviewed. Pt new to [place]. 12-lead ECG from 02/20/19 shows SR, ZAKIA, QTc 511, questionable inferior Qs, and diffuse ST-T w abnormalities. Echo from this admission shows LVEF 20-25%, mod MR, RVSP 40. Nuclear stress test obtained shows EF 24% with extensive infarct involving inf apex, inf/ant apex, and inferoseptal wall. LHC yesterday with severe LM disease, occluded RCA/LAD, severe LCx disease. #. SCHF: NYHA FC III-IV on presentation given one extra dose of IV lasix this AM as urine output yesterday decreased no more PND/orthopnea [facility] with severe disease and noting amenable to PCI not a surgical candidate pt agrees to palliative care with likely quick transition to hospice #. PVD: no symptoms of claudications, nonhealing wounds/ulcers ASA and statin #. htn: BP appears at goal Plan: - DC today or tomorrow on PO meds. 03/01/19 11:57 Subjective: Dizzy today. Feels tight when trying to take breath. Family has multiple questions about oxygen and length of prognosis. I.e. when she could travel to [place] or [place] to see family there. She would then like to live there. Time Spent with Patient: greater than 25 minutes Time Spent with Patient: Greater than 25 minutes spent on this patients care, greater than 50% of time spent counseling, educating, and coordinating care regarding the above mentioned plan. Objective: Vital Signs (8 Hrs) Temp Pulse Resp BP Pulse Ox 03/01/19 11:15 97.6 F 54 L 19 117/48 L 99 03/01/19 07:30 97.4 F 51 L 19 127/59 H 99 Intake/Output (24 Hrs) 02/28/19 03/01/19 03/02/19 05:59 05:59 05:59 Intake Total 660 120 Balance 660 120 Intake: Oral (ml) 660 120 Other: Weight 49.4 kg 47.7 kg Output Comment Toilet per pt family Number of Voids Bedside Commode 3 Toilet 3 1 Number of Stools Toilet 1 Result Diagrams: 02/28/19 09:45 03/01/19 03:18 Telemetry: reviewed - Physical Exam Constitutional: no apparent distress Eyes: anicteric sclera Ears, Nose, Mouth, Throat: moist mucous membranes Cardiovascular: regular rate and rhythm Respiratory: reduced air movement, No inspiratory crackles Neurologic: AAOx3 Psychiatric: cooperative, interactive ICD10 Worksheet Patient Problems: Problems Problem Status Onset Chronic Disease Mgmt/Transitional Care Acute Hyperglycemia due to type 2 diabetes mellitus Acute
[2019-03-01] MEDS ORDERED: INSULIN GLARGINE 100 UNITS/ML UNIT SC SCH (14:56)
--- NOTE | 2019-03-01 15:00 | HOSPPROG ---
Hospitalist Progress Note Assessment/Plan: DIAGNOSES: * Acute systolic congestive heart failure, new onset * Reduced ejection fraction at 24% with multiple wall motion abnormalities and previous infarct * Severe diffuse CAD, not amenable to stenting * Diabetes mellitus - has been having a lot of hypoglycemia, and was symptomatic this am at 80, was 57 last johnny despite only 1/3 her usual am lantus dose and not getting her glipizide * Hypertension, essential on treatment * Hypothyroidism on replacement PLANS: * Continue diuresis * Follow-up renal function and electrolytes * Continue other current cardiac medicines for maximal medical therapy for heart failure and CAD * Stop evening Lantus, decrease a.m. Lantus, add some postprandial Humalog, continue off glipizide * Had long discussions with the patient family again today, they are very interested in palliative care and likely cardiac hospice care which I think is quite appropriate * Reviewed with Cardiology today, Lilly Saucedo Seen by me on hospitalist rounds and multidisciplinary rounds today I visited with medical affiliate marketing specialist today SUBJECTIVE: Still some exertional dyspnea but better than At admission mild lightheadedness with walking but able to walk Appetite not great but is eating, no nausea No anginal-type pains OBJECTIVE Vitals reviewed: Mildly bradycardic, otherwise stable without fever Wood Panel Inspector, my review: Sinus, pulse in mid 50s Urine output not recorded past 24 hr but per patient has been urinating significantly Exam: alert oriented skin warm dry color ok Neck jugular venous distention is still present sitting upright resps not labored lungs few bibasilar rales heart regular abd soft nondistended nontender, bowel sounds present limbs warm, mild pitting notably less than yesterday in legs iv site ok Lab data: Creatinine stable, potassium stable A.m. Glucose 80 which was symptomatic for her; sugars did get down to 57 last evening despite no glipizide and only 1/3 her usual a.m. Lantus dose, she had been NPO most of day Post prandials sugar at noon today to 30 Objective: Vital Signs Temp Pulse Resp BP Pulse Ox 36.4 C 54 L 19 117/48 L 99 03/01/19 11:15 03/01/19 11:15 03/01/19 11:15 03/01/19 11:15 03/01/19 11:15 Laboratory Results 02/28/19 09:45 03/01/19 03:18 02/28/19 03/01/19 03/02/19 06:59 06:59 06:59 Intake Total 660 120 Output Total 100 Balance 660 120 -100 PT 15.1 SEC (12.0-15.0) H 02/28/19 09:45 INR 1.24 (0.83-1.16) H 02/28/19 09:45 - Time Spent With Patient Time Spent with Patient: greater than 35 minutes Time Spent with Patient: Greater than 35 minutes spent on this patients care, greater than 50% of time spent counseling, educating, and coordinating care regarding the above mentioned plan. ICD10 Worksheet Patient Problems: Problems Problem Status Onset Chronic Disease Mgmt/Transitional Care Acute Hyperglycemia due to type 2 diabetes mellitus Acute
[2019-03-01] MEDS ORDERED: LACTULOSE 20 GM/30 ML UDCUP PO PRN (15:19)
[2019-03-01] MEDS ORDERED: BISACODYL 10 MG SUPP PR PRN (15:19)
[2019-03-01] MEDS: POLYETHYLENE GLYCOL 3350 17 GM PKT PO PRN (15:38)
[2019-03-01] MEDS: INSULIN LISPRO 100 UNIT/ML SC SCH (18:13)
[2019-03-01] MEDS: SENNOSIDES/DOCUSATE SODIUM TAB PO SCH (21:38)
[2019-03-02] MEDS: CALCITONIN 200 UNITS/SPRAY INH NS SCH (08:06)
[2019-03-02] MEDS: LEVOTHYROXINE 88 MCG TAB PO SCH (08:44)
[2019-03-02] MEDS: INSULIN LISPRO 100 UNIT/ML SC SCH ×2 (08:44→12:36)
[2019-03-02] MEDS: CITALOPRAM 20 MG TAB PO SCH (08:45)
[2019-03-02] MEDS: SENNOSIDES/DOCUSATE SODIUM TAB PO SCH (08:45)
[2019-03-02] MEDS: ASPIRIN EC 81 MG TAB PO SCH (08:45)
[2019-03-02] MEDS: LISINOPRIL 20 MG TAB PO SCH (08:45)
[2019-03-02] MEDS: FAMOTIDINE 20 MG TAB PO SCH (08:45)
[2019-03-02] MEDS: ATORVASTATIN CALCIUM 10 MG TAB PO SCH (08:45)
[2019-03-02] MEDS: ENOXAPARIN 30 MG/0.3 ML SYR SC SCH (08:45)
[2019-03-02] MEDS: ACETAMINOPHEN 325 MG TAB PO PRN (08:46)
[2019-03-02] MEDS: METOPROLOL SUCCINATE XR 25 MG TAB PO SCH (08:47)
[2019-03-02] MEDS ORDERED: FUROSEMIDE 20 MG TAB PO SCH ×2 (09:00→09:08)
[2019-03-02] MEDS ORDERED: LISINOPRIL 20 MG TAB PO SCH (09:08)
--- NOTE | 2019-03-02 09:12 | PDCARPN ---
Cardiology Progress Note Chief Complaint: SCHF Assessment/Plan: Assessment: 88F PMH PVD, DM, htn, hypoT, direct admitted after being seen at [facility] on 02/26/19. PVD history includes L fem-pop [place] [address] Amado. P/w 3 weeks of worsening dyspnea, pnd/orthopnea, SHIRA. Chart reviewed. Pt new to [place]. 12-lead ECG from 02/20/19 shows SR, ZAKIA, QTc 511, questionable inferior Qs, and diffuse ST-T w abnormalities. Echo from this admission shows LVEF 20-25%, mod MR, RVSP 40. Nuclear stress test obtained shows EF 24% with extensive infarct involving inf apex, inf/ant apex, and inferoseptal wall. [facility] with severe LM disease, occluded RCA/LAD, severe LCx disease with multiple lesions #. SCHF: NYHA FC III-IV on presentation no more PND/orthopnea [facility] with severe disease and noting amenable to PCI not a surgical candidate pt agrees to palliative care with likely quick transition to hospice #. PVD: no symptoms of claudications, nonhealing wounds/ulcers ASA and statin #. htn: BP appears at goal Plan: - DC today with PO meds - Reduced home Lisinopril to allow room for addition of Spironolactone - Reduced Lasix PO dose/ educated about daily weights - pt would be appropriate for both transitional care and palliative services to follow on discharge 03/02/19 09:09 Subjective: Having LE cramping. No pnd/orthopnea. Dizziness has resolved. Reviewed/Discussed With: hospitalist (Dr. Quintero) Objective: Vital Signs (8 Hrs) Temp Pulse Resp BP Pulse Ox 03/02/19 08:47 59 L 03/02/19 07:33 98.2 F 55 L 16 131/63 H 99 03/02/19 03:13 97.4 F 65 12 116/55 L 91 L Intake/Output (24 Hrs) 03/01/19 03/02/19 03/03/19 05:59 05:59 05:59 Intake Total 120 600 Output Total 550 Balance 120 50 Intake: Oral (ml) 120 600 Output: Urine (ml) 550 Toilet 550 Other: Weight 46.7 kg Number of Voids Bedside Commode 3 Toilet 1 Result Diagrams: 02/28/19 09:45 04/21/19 03:16 - Physical Exam Constitutional: no apparent distress Eyes: PERRL Ears, Nose, Mouth, Throat: moist mucous membranes Cardiovascular: regular rate and rhythm Respiratory: no crackles, reduced air movement Skin: no rashes, warm, no edema Neurologic: AAOx3 Psychiatric: cooperative, interactive ICD10 Worksheet Patient Problems: Problems Problem Status Onset Chronic Disease Mgmt/Transitional Care Acute Hyperglycemia due to type 2 diabetes mellitus Acute
[2019-03-02] MEDS ORDERED: SPIRONOLACTONE 25 MG TAB PO SCH (09:15)
[2019-03-02] MEDS ORDERED: MAGNESIUM OXIDE 400 MG TAB PO SCH (09:15)
[2019-03-02] MEDS: FUROSEMIDE 40 MG/4 ML VIAL IVP SCH (09:41)
[2019-03-02] MEDS: POLYETHYLENE GLYCOL 3350 17 GM PKT PO PRN (09:50)
[2019-03-02 11:48] VITALS: BP 109/53
--- NOTE | 2019-03-02 14:54 | PDIAF ---
- Diagnosis Diagnosis: systolic chf, severe CAD, diabetes, hypothyroid Code Status: Full Code - Medication Management Discharge Medications: electronically signed and located in the Home Medication List. PICC Care - Routine: N/A - Orders Services needed: Home Care, Certified Embryology Professor, Physical Therapy, Occupational Therapy Home Care Face to Face: I certify that this patient was under my care and that I had the required [id number] encounter meeting the encounter requirements on the discharge day. My findings support the fact that the patient is homebound as defined in Home Care Face to Face Continued: CMS Chapter 7 Medicare Benefits Manual 30.1.1 , The condition of the patient is such that there exists a normal inability to leave home and consequently, leaving home would require a considerable and taxing effort. Diet Recommendation: sodium restricted Diet Texture: Regular Texture Diet - Follow Up Care Current Providers and Referrals: Tish Boyer NP [Primary Care Provider] -
--- NOTE | 2019-03-02 14:57 | PDDCSUM ---
Discharge Summary Discharge Summary: DISCHARGE DIAGNOSES: * Acute systolic congestive heart failure with ischemic cardiomyopathy * Severe diffuse coronary artery disease, not amenable to percutaneous revascularization * Diabetes mellitus, type 2 * Chronic hypertension, controlled * Hypothyroidism, undertreated on low-dose replacement CONSULTANTS: Satinder Deluna PROCEDURES: Echocardiogram showing reduced ejection fraction 24% Coronary angiography showing severe diffuse coronary disease including occlusion of LAD and right coronaries and very tight left main HOSPITAL COURSE SUMMARY: This patient came in with fatigue and shortness of breath. She was identified as having severe acute CHF with EF 24% (newly identified), and severe diffuse CAD. LAD and RCA chronically occluded with tight left main. She had marked ST elevations with catheterization of L main, so was not felt to be a candidate for stenting procedures. She declined offer for possible CABG. Additionally her TSH was 26 w low free T3 on 50 mcg thyroxine. She was treated with lasix, aldactone, metroprolol, and lisinopril and responded very well with good diuresis and improved respiration. She had her levothyroxine dose increased to 88 mcg. At this time she is stable for DC from acute care. She has chosen to enter palliative care thru [facility]. They will assist in her home care which will also at present included nursing and PT. PENDING TEST RESULTS: None MEDICATION CHANGES: Addition of Lasix, spironolactone, lisinopril, aspirin FOLLOW-UP PLAN: she will come under the care of [facility] at this time, at home Greater than 35 minutes bedside and care coordination time today
--- NOTE | 2019-03-02 15:16 | ASMTDCNOTE ---
Case Management Discharge Discharge Order Complete? Answers: Yes Patient to Obtain Answers: via Family Medications Transportation Arranged Answers: Family/Friends Faxed Final Orders Answers: Yes Agency/Facility Transfer Answers: Yes Report Printed & Faxed to Receiving Agency Family Notified Answers: Yes Discharge Comments Notes: CM met with pt and family with the toxicology teacher who to discuss outpatient linkage with [facility] Pall[facility] Care and [facility] Home Health Care PT/OT/RN. CM submit discharge orders via [email or web address]. RN notified. Family to transport. No issues obtaining meds or helping to get pt to appts. Pt's contact information verified. [facility] alerted pt is urdu speaking. No other CM needs Identified. Date Signed: 03/02/2019 03:16 PM Electronically Signed By:CATHERINE Roth
--- NOTE | 2019-03-02 15:16 | ASMTLACE ---
LACE Length of stay for Answers: 3 days current admission Acuity / Level of Answers: Yes Care: Did the patient have an inpatient admission? Comorbidities - select Answers: Diabetes (uncontrolled or all that apply controlled) Other Notes: Hypothyroid; HTN # of Emergency department Answers: 1-2 visits in the last 6 months Score: 9 Date Signed: 03/02/2019 03:16 PM Electronically Signed By:CATHERINE Roth
--- NOTE | 2019-03-02 15:20 | ASDISCHSUM ---
Discharge Information Plan Status:Home with Home Health Medically Cleared to Leave:03/02/2019 Discharge Date:03/02/2019 CM D/C Disposition:Home Health Service ADT D/C Disposition:Home Health Service Projected Discharge Date:02/27/2019 11:00 AM Transportation at D/C: Discharge Delay Reason: Follow-Up Date:02/27/2019 11:00 AM Discharge Slot: Final Diagnosis: Placement Information Referral Type:*Home Health Care Services Referral ID:[id number] Provider Name:[facility] [address] [place] [address] Address 2: City:[place] Selection Factors: State:[place] Referral Type:Palliative Care Referral ID:[id number] Provider Name:[facility] Address 1:[address] [place] Address 2: City:[place] Selection Factors: State:[place] Patient Contact Information Contact Name:VINICIUS Relationship:Son Address:[address] City: Alternate Phone: State/[facility] Code: Email: Financial Information Financial Class:Medicare Primary Plan Desc:MEDICARE INPATIENT Primary Plan Number:[id number] Secondary Plan Desc:[place] Secondary Plan Number:[id number] Assessment Information [facility] CM Progress Note CM Note CM Note Notes: Pt is a 88 y/o female admitted for hyperglycemia and bilateral lower extremity edema. Pt is afghan speaking only and requires an park interpreter. Therapies have been ordered and awaiting recommendations. Cards has been consulted. Needs are TBD at this time. CM to follow. Plan: TBD Date Signed: 02/26/2019 01:28 PM Electronically Signed By:CATHERINE Claudio LACE LACE Length of stay for Answers: 3 days current admission Acuity / Level of Answers: Yes Care: Did the patient have an inpatient admission? Comorbidities - select Answers: Diabetes (uncontrolled or all that apply controlled) Other Notes: Hypothyroid; HTN # of Emergency department Answers: 1-2 visits in the last 6 months Score: 9 Date Signed: 03/02/2019 03:16 PM Electronically Signed By:CATHERINE Roth [facility] CM Progress Note CM Note CM Note Notes: CM met w/ pt, pts two daughters who live out of town and Lissette, the site interpreter. Pt lives w/ her son. The daughters are requesting that pt has a HOT MILL OBSERVER to help bathe pt. They are agreeable to a referral sent to [facility]. Referral sent to [facility] and they are able to accept. CM sent a referral to [facility]. Pts family is interested in 5 free meals on wheels after this hospitalization. Therapies are pending. Family may be curious about meal preparation. CM could apply for HCBS services but informed them that it takes a month or two to establish services. Therapies are pending. CM informed family that pt may need SNF but it is unclear at this time. CM to follow. Date Signed: 02/26/2019 03:22 PM Electronically Signed By:CATHERINE Claudio [facility] CM Progress Note CM Note CM Note Notes: Pt and pts family is requesting for pts two sons to come from [place]. Letter written and given to the family/signed by Dr. Quintero. PT is recommending HC. CM to follow. Plan: [facility]; PT, OT, RN, HOT MILL OBSERVER Date Signed: 02/28/2019 04:06 PM Electronically Signed By:CATHERINE Claudio [facility] CM Progress Note CM Note CM Note Notes: Referral made to [facility]ospice per MD request. DC Plan: TBD Date Signed: 02/28/2019 05:51 PM Electronically Signed By:Mikala Trujillo RN [facility] CM Progress Note CM Note CM Note Notes: CM spoke with RN and Dr. Quintero who feel Palliative Care Consult in the community would be most appropriate at this time. Family is aware. Per RN, likely discharge tomorrow with [facility] and [facility] PT/OT/RN. CM to follow. Date Signed: 03/01/2019 11:44 AM Electronically Signed By:CATHERINE Roth Case Management Discharge Plan Note Case Management Discharge Discharge Order Complete? Answers: Yes Patient to Obtain Answers: via Family Medications Transportation Arranged Answers: Family/Friends Faxed Final Orders Answers: Yes Agency/Facility Transfer Answers: Yes Report Printed & Faxed to Receiving Agency Family Notified Answers: Yes Discharge Comments Notes: CM met with pt and family with the park interpreter who to discuss outpatient linkage with [facility] Palliative Care and [facility] Home Health Care PT/OT/RN. CM submit discharge orders via [email or web address]. RN notified. Family to transport. No issues obtaining meds or helping to get pt to appts. Pt's contact information verified. [facility] alerted pt is afghan speaking. No other CM needs Identified. Date Signed: 03/02/2019 03:16 PM Electronically Signed By:CATHERINE Roth Intervention Information Intervention Type:*TAHIRA-Signed Date of Service:02/27/2019 02:43 PM Patient Type:Observation Staff Member:Yumiko Musa Hours: Discipline: Severity: Comment:
[2019-03-03] MEDS ORDERED: LISINOPRIL 10 MG TAB PO SCH (09:00)
== END 2019-03-02 16:21 | disposition home health service (06) | DRG 287 ==
LOC: F2W 12:05 → OBSVTOIN 02-27 10:33
PROVIDERS: ADMIT Internal Medicine; ATTEND Internal Medicine
PROC: B2111ZZ Fluoroscopy of Multiple Coronary Arteries using Low Osmolar Contrast (ICD-10-PCS; principal; 2019-02-28)
PROC: B2151ZZ Fluoroscopy of Left Heart using Low Osmolar Contrast (ICD-10-PCS; principal; 2019-02-28)
PROC: 4A023N7 Measurement of Cardiac Sampling and Pressure, Left Heart, Percutaneous Approach (ICD-10-PCS; principal; 2019-02-28)
DX: I50.21 Acute systolic (congestive) heart failure (principal); I25.5 Ischemic cardiomyopathy; I25.10 Atherosclerotic heart disease of native coronary artery without angina pectoris; I25.82 Chronic total occlusion of coronary artery; E11.65 Type 2 diabetes mellitus with hyperglycemia; E11.649 Type 2 diabetes mellitus with hypoglycemia without coma; Z79.4 Long term (current) use of insulin; Z79.84 Long term (current) use of oral hypoglycemic drugs; E87.1 Hypo-osmolality and hyponatremia; I10 Essential (primary) hypertension; E03.9 Hypothyroidism, unspecified; I70.203 Unspecified atherosclerosis of native arteries of extremities, bilateral legs; Z95.820 Peripheral vascular angioplasty status with implants and grafts
CPT/HCPCS: 84480-90; 97116-GP; 97161-GP; 97165-GO; 97530-GO; A9500; G0378; G0379; J1644; J1650; J1815; J1940; J2250; J2785; J3010; Q9967

== ENCOUNTER 2019-03-20 11:23 | Observation (INO) | payer OTHER, MEDICAID ==
--- NOTE | 2019-03-20 12:15 | EDPHY ---
H & P Time Seen by Provider: 03/20/19 12:12 HPI/ROS: Chief complaint. Vomiting, abdominal pain HPI. 88-year-old female presents emergency department with 4 day history of vomiting and diarrhea. Upper abdominal pain began last night. It is in the epigastrium. No radiation to the back. No chest pain or shortness of breath. Patient has no appetite. Decreased oral intake. No urinary symptoms. No fever. Recent hospitalization with discharge March 02 with ischemic cardiomyopathy and CHF. Patient was referred to palliative care. ROS 10 systems were reviewed and negative with the exception of the elements mentioned in the history of present illness Past Medical/Surgical History: CHF, ischemic cardiomyopathy, diabetes, hypertension, hypothyroid, gastritis, pneumonia, coronary artery disease Social History: , nonsmoker, no alcohol Smoking Status: Never smoked Physical Exam: General Appearance: Alert pleasant well-developed female mild distress with stable vital signs Eyes: Pupils equal and round no pallor or injection. ENT, Mouth: Mucous membranes are moist. Respiratory: There are no retractions, lungs are clear to auscultation. Cardiovascular: Regular rate and rhythm.. Gastrointestinal: Abdomen is soft with tenderness in the epigastrium. No masses. Normal bowel sounds Neurological: Awake and alert, sensory and motor exams grossly normal. Skin: Warm and dry, no rashes. Musculoskeletal: Neck is supple nontender. Extremities symmetrical, full range of motion. Psychiatric: Patient is oriented X 3, there is no agitation. Constitutional: Initial Vital Signs Temperature (C) 36.2 C 03/20/19 11:29 Heart Rate 71 03/20/19 11:29 Respiratory Rate 24 H 03/20/19 11:29 Blood Pressure 146/80 H 03/20/19 11:29 O2 Sat (%) 99 03/20/19 11:29 O2 Delivery Mode Room Air Allergies/Adverse Reactions: No Known Allergies Allergy (Verified 03/20/19 11:29) Home Medications: Medication Instructions Recorded Calcitonin [Fortical (*)] 200 units NASAL DAILY 02/28/12 Famotidine [Pepcid 20 MG (*)] 20 mg PO DAILY 12/23/13 Citalopram Hydrobromide [celeXA 10 10 mg PO DAILY 01/30/17 MG] Aspirin EC [Aspirin EC 81 mg (*)] 81 mg PO DAILY #0 tab 03/02/19 Insulin Glargine [Lantus Syringe] 10 units SC DAILY unit 03/02/19 Levothyroxine [Synthroid 88 mcg 88 mcg PO DAILY AT 6AM #30 tab 03/02/19 (*)] Furosemide [Lasix 20 MG (*)] 10 mg PO DAILY@13 03/20/19 Lisinopril [Zestril 10 mg (*)] 10 mg PO DAILY@13 03/20/19 Metoprolol Succinate Xr [Toprol Xl 12.5 mg PO DAILY@03/20/19 25 mg (*)] Spironolactone [Aldactone 25 MG 25 mg PO DAILY@03/20/19 (*)] Medical Decision Making - Diagnostics EKG Interpretation: EKG interpreted by me shows normal sinus rhythm normal interval. Old inferior OK. QRS mild interventricular conduction delay. Anterior lateral ST changes without significant ST elevation or depression. No arrhythmia. The rate is 64 Imaging Results: Imaging Impressions Abdomen CT 03/20/19 12:23 Impression: 1. Haziness of the omental fat predominantly within the mid abdomen and right lower quadrant may represent underlying omental inflammation. Otherwise, no acute abdominopelvic process. 2. Extrahepatic ductal dilatation, likely within normal limits for patient's age and postcholecystectomy state. 3. Small hiatal hernia. 4. Since 2011, mild interval enlargement of a subcentimeter hypodense lesion arising from the superior pole right kidney. This lesion is incompletely characterized due to size and would recommend 12 month follow-up CT or MRI. 5. Severe atherosclerotic disease causing approximate 50% stenosis in the infrarenal aorta and similar appearing irregularity and occlusion of the proximal left SFA. Findings and recommendations discussed with ROBIN CAMARILLO at 1342 hour, 2018. Chest X-Ray 03/20/19 12:24 Impression: Mild diffuse interstitial thickening and moderate cardiac enlargement, without acute cardiopulmonary abnormality identified. Chest x-ray shows LVH. No evidence for pneumonia Abdominal CT reviewed by me and discussed with radiologist is essentially nonacute. There is omental inflammation in the lower right quadrant however the patient does not have any symptoms here Procedures: IV normal saline. Zofran for nausea. Fentanyl for pain ED Course/Re-evaluation: Re-evaluation patient is stable. The patient and I discussed imaging study results, laboratory evaluation, EKG findings. We discussed treatment plan including recommendation for admission. She and her family expressed understanding and agreement I consulted discussed the case with hospitalist, who agrees to the admission I consulted discussed case with Cardiology who will see the patient in consultation Differential Diagnosis: The family apparently did not want cardiac intervention about 2 weeks ago. They had discussed hospice and palliative care. However the patient is here today without any hospice people. She has elevated troponin, BNP and significantly low sodium - Data Points Laboratory Results: Laboratory Results 03/20/19 12:15 03/20/19 12:15 03/20/19 03/20/19 03/20/19 13:22 12:45 12:15 WBC RBC Hgb Hct MCV MCH MCHC RDW Plt Count MPV Neut % (Auto) Lymph % (Auto) [place] % (Auto) Eos % (Auto) Baso % (Auto) Nucleat RBC Rel Count Absolute Neuts (auto) Absolute Lymphs (auto) Absolute Monos (auto) Absolute Eos (auto) Absolute Basos (auto) Absolute Nucleated RBC Immature Gran % Immature Gran # Sodium 121 mEq/L L mEq/L (135-145) Potassium 5.0 mEq/L mEq/L (3.5-5.2) Chloride 87 mEq/L L mEq/L (97-110) Carbon Dioxide 18 mEq/l L mEq/l (22-31) Anion Gap 16 mEq/L H mEq/L (6-14) BUN 33 mg/dL H mg/dL (7-23) Creatinine 0.9 mg/dL mg/dL (0.6-1.0) Estimated GFR 59 Glucose 83 mg/dL mg/dL (70-100) Calcium 9.3 mg/dL mg/dL (8.5-10.4) Total Bilirubin 1.1 mg/dL mg/dL (0.1-1.4) Conjugated Bilirubin 0.3 mg/dL mg/dL (0.0-0.5) Unconjugated Bilirubin 0.8 mg/dL mg/dL (0.0-1.1) AST 58 IU/L H IU/L (14-46) ALT 35 IU/L IU/L (9-52) Alkaline Phosphatase 103 IU/L IU/L (38-126) POC Troponin I 1.54 ng/mL H ng/mL (0.00-0.08) NT-Pro-B Natriuret Pep 43001 pg/mL H pg/mL (0-450) Total Protein 7.4 g/dL g/dL (6.3-8.2) Albumin 4.1 g/dL g/dL (3.5-5.0) Lipase 37 IU/L IU/L (23-300) Urine Color PALE YELLOW Urine Appearance CLEAR Urine pH 5.0 (5.0-7.5) Ur Specific [place] 1.006 (1.002-1.030) Urine Protein NEGATIVE (NEGATIVE) Urine Ketones TRACE H (NEGATIVE) Urine Blood 2+ H (NEGATIVE) Urine Nitrate NEGATIVE (NEGATIVE) Urine Bilirubin NEGATIVE (NEGATIVE) Urine Urobilinogen NEGATIVE EU EU (0.2-1.0) Ur Leukocyte Esterase NEGATIVE (NEGATIVE) Urine RBC 1-3 /hpf /hpf (0-3) Urine WBC 1-3 /hpf /hpf (0-3) Ur Epithelial Cells TRACE /lpf /lpf (NONE-1+) Urine Bacteria TRACE /hpf H /hpf (NONE SEEN) Urine Mucus TRACE /lpf /lpf (NONE-1+) Urine Glucose NEGATIVE (NEGATIVE) 03/20/19 12:15 WBC 4.43 10^3/uL 10^3/uL (3.80-9.50) RBC 4.68 10^6/uL 10^6/uL (4.18-5.33) Hgb 13.0 g/dL g/dL (12.6-16.3) Hct 39.1 % % (38.0-47.0) MCV 83.5 fL fL (81.5-99.8) MCH 27.8 pg L pg (27.9-34.1) MCHC 33.2 g/dL g/dL (32.4-36.7) RDW 15.0 % % (11.5-15.2) Plt Count 292 10^3/uL 10^3/uL (150-400) MPV 9.1 fL fL (8.7-11.7) Neut % (Auto) 56.4 % % (39.3-74.2) Lymph % (Auto) 32.1 % % (15.0-45.0) [place] % (Auto) 8.1 % % (4.5-13.0) Eos % (Auto) 2.3 % % (0.6-7.6) Baso % (Auto) 0.9 % % (0.3-1.7) Nucleat RBC Rel Count 0.0 % % (0.0-0.2) Absolute Neuts (auto) 2.50 10^3/uL 10^3/uL (1.70-6.50) Absolute Lymphs (auto) 1.42 10^3/uL 10^3/uL (1.00-3.00) Absolute Monos (auto) 0.36 10^3/uL 10^3/uL (0.30-0.80) Absolute Eos (auto) 0.10 10^3/uL 10^3/uL (0.03-0.40) Absolute Basos (auto) 0.04 10^3/uL 10^3/uL (0.02-0.10) Absolute Nucleated RBC 0.00 10^3/uL 10^3/uL (0-0.01) Immature Gran % 0.2 % % (0.0-1.1) Immature Gran # 0.01 10^3/uL 10^3/uL (0.00-0.10) Sodium Potassium Chloride Carbon Dioxide Anion Gap BUN Creatinine Estimated GFR Glucose Calcium Total Bilirubin Conjugated Bilirubin Unconjugated Bilirubin AST ALT Alkaline Phosphatase POC Troponin I NT-Pro-B Natriuret Pep Total Protein Albumin Lipase Urine Color Urine Appearance Urine pH Ur Specific [place] Urine Protein Urine Ketones Urine Blood Urine Nitrate Urine Bilirubin Urine Urobilinogen Ur Leukocyte Esterase Urine RBC Urine WBC Ur Epithelial Cells Urine Bacteria Urine Mucus Urine Glucose Medications Given: Discontinued Medications Fentanyl (Sublimaze) 50 mcg IVP EDNOW ONE Stop: 03/20/19 12:24 Last Admin: 03/20/19 12:50 Dose: 50 mcg Sodium Chloride (Ns) 1,000 mls @ 0 mls/hr IV EDNOW ONE; Wide Open PRN Reason: Protocol Stop: 03/20/19 12:24 Last Admin: 03/20/19 12:50 Dose: 1,000 mls Ondansetron HCl (Zofran) 4 mg IVP EDNOW ONE Stop: 03/20/19 12:24 Last Admin: 03/20/19 12:50 Dose: 4 mg Point of Care Test Results: Chemistry 03/20/19 13:22 POC Troponin I 1.54 ng/mL H ng/mL (0.00-0.08) Departure - Departure Disposition: [facility] Acute Clinical Impression: Hyponatremia, Elevated troponin CHF (congestive heart failure) Qualifiers: Heart failure type: unspecified Heart failure chronicity: unspecified Qualified Code(s): I50.9 - Heart failure, unspecified Abdominal pain Qualifiers: Abdominal location: epigastric Qualified Code(s): R10.13 - Epigastric pain Condition: Fair
[2019-03-20] MEDS ORDERED: fentaNYL 100 MCG/2 ML INJ IVP ONE (12:23)
[2019-03-20] MEDS ORDERED: NS 1,000 ML IV ONE (12:23)
[2019-03-20] MEDS ORDERED: ONDANSETRON 4 MG/2 ML VIAL IVP ONE (12:23)
[2019-03-20 12:35] LABS: PLATELET COUNT 292 10^3/uL (150-400)
[2019-03-20] MEDS ORDERED: IOPAMIDOL (ISOVUE-300) 100 ML BTL ONE (12:57)
[2019-03-20] MEDS ORDERED: D50W 25 GM/50 ML SYR IVP PRN (15:53)
[2019-03-20] MEDS ORDERED: D5W LR 1,000 ML IV SCH (16:00)
[2019-03-20] MEDS ORDERED: ONDANSETRON 4 MG/2 ML VIAL IVP PRN (16:02)
[2019-03-20] MEDS ORDERED: ONDANSETRON DISINTEGRATING 4 MG TAB PO PRN (16:02)
--- NOTE | 2019-03-20 16:07 | PDGENHP ---
History and Physical - Chief Complaint Epigastric pain, vomiting x 4 days - History of Present Illness 88 y/o female w/hx systolic CHF w/ischemic cardiomyopathy, severe CAD not amenable to PCI, DM2, chronic HTN, and hypothyroidism presents to ED d/t non- bloody emesis x 4 days and epigastric pain Mild SOB. Endorses diarrhea, decreased appetite. Denies CP, palpitations, fever or chills. She was recently d/c'ed from [facility] w/palliative care, EF of 24% and cath procedure revealing severe CAD occlusion to LAD, right coronaries and tight left main that is not stentable - she declined CABG option. She is being admitted for further work-up, monitoring and treatment. She is Georgian-speaking; Lissette, hourly sign language interpreter, was in room w/me. History Information - Allergies/Home Medication List Allergies/Adverse Reactions: No Known Allergies Allergy (Verified 03/20/19 11:29) Home Medications: Calcitonin [Fortical (*)] 200 units NASAL DAILY 02/28/12 [Last Taken 03/19/19] Famotidine [Pepcid 20 MG (*)] 20 mg PO DAILY 12/23/13 [Last Taken 03/20/19] Citalopram Hydrobromide [celeXA 10 MG] 10 mg PO DAILY 01/30/17 [Last Taken 03/20] Furosemide [Lasix 20 MG (*)] 10 mg PO DAILY@03/20/19 [Last Taken 03/19/19] Lisinopril [Zestril 10 mg (*)] 10 mg PO DAILY@03/20/19 [Last Taken 03/19/19] Metoprolol Succinate Xr [Toprol Xl 25 mg (*)] 12.5 mg PO DAILY@03/20/19 [ Last Taken 03/19/19] Spironolactone [Aldactone 25 MG (*)] 25 mg PO DAILY@03/20/19 [Last Taken 06/30] I have personally reviewed and updated: family history, medical history, social history, surgical history Past Medical History: Hypothyroidism, hypertension, gastritis, insulin- dependent diabetes - Surgical History Reports: no pertinent surgical hx - Family History Positive for: cancer (Mother had liver cancer; father by what is thought to be bad cold) - Social History Smoking Status: Never smoked Alcohol Use: None Drug Use: None Additional social history: She is , she lives in apartment with her son who was at bedside today Review of Systems Review of Systems: ROS: 10pt was reviewed & negative except for what was stated in HPI & below Physical Exam Physical Exam: Lab data and imaging were reviewed. WBC: 4.43 H/H: 13.0/39.1 Plt count: 292 Na: 121 K: 5.0 Cl: 87 Co2: 18 BUN/Cr: 33/0.9 BNP: 88589 Trop: 1.[address]: Possible omental inflammation. No acute abdominopelvic process. Extrahepatic dilatation most likely normal limitis for patient's age. Noted severe atherosclerotic disease causing approximate 50% stenosis in the infrarenal aorta and similar appearing irregularity and occlusion of the prximal left SFA. EKG: SR CXR: Mild diffuse interstitial thickening and moderate cardiac enlargement w/o acute cardiopulmonary abnormality identified. Temp Pulse Resp BP Pulse Ox 36.9 C 69 16 126/70 H 99 03/20/19 15:44 03/20/19 15:20 03/20/19 15:20 03/20/19 15:20 03/20/19 15:20 Constitutional: chronically ill appearing, cachectic Eyes: PERRL, anicteric sclera, EOMI Ears, Nose, Mouth, Throat: hearing normal, ears appear normal, no oral mucosal ulcers, dry mucous membranes (Appears hypovolemic) Cardiovascular: regular rate and rhythym, systolic murmur Peripheral Pulses: 2+: dorsalis-pedis (R), dorsalis-pedis (L) Respiratory: reduced air movement Gastrointestinal: normoactive bowel sounds, soft, non-tender abdomen, no palpable masses Genitourinary: no bladder fullness, no bladder tenderness Skin: warm, normal color, no rashes or abrasions, no fluctuance, no induration, No mottled Musculoskeletal: full muscle strength, no muscle tenderness, normal joint ROM, no joint effusions Neurologic: AAOx3, sensation intact bilaterally, CN II-XII Intact Psychiatric: interacting appropriately, not anxious, not encephalopathic, thought process linear Lymph, Heme, Immunologic: no cervical LAD, no supraclavicular LAD Lab Data & Imaging Review 03/20/19 12:15 03/20/19 12:15 WBC 4.43 10^3/uL (3.80-9.50) 03/20/19 12:15 RBC 4.68 10^6/uL (4.18-5.33) 03/20/19 12:15 Hgb 13.0 g/dL (12.6-16.3) 03/20/19 12:15 Hct 39.1 % (38.0-47.0) 03/20/19 12:15 MCV 83.5 fL (81.5-99.8) 03/20/19 12:15 MCH 27.8 pg (27.9-34.1) L 03/20/19 12:15 MCHC 33.2 g/dL (32.4-36.7) 03/20/19 12:15 RDW 15.0 % (11.5-15.2) 03/20/19 12:15 Plt Count 292 10^3/uL (150-400) 03/20/19 12:15 MPV 9.1 fL (8.7-11.7) 03/20/19 12:15 Neut % (Auto) 56.4 % (39.3-74.2) 03/20/19 12:15 Lymph % (Auto) 32.1 % (15.0-45.0) 03/20/19 12:15 Duval % (Auto) 8.1 % (4.5-13.0) 03/20/19 12:15 Eos % (Auto) 2.3 % (0.6-7.6) 03/20/19 12:15 Baso % (Auto) 0.9 % (0.3-1.7) 03/20/19 12:15 Nucleat RBC Rel Count 0.0 % (0.0-0.2) 03/20/19 12:15 Absolute Neuts (auto) 2.50 10^3/uL (1.70-6.50) 03/20/19 12:15 Absolute Lymphs (auto) 1.42 10^3/uL (1.00-3.00) 03/20/19 12:15 Absolute Monos (auto) 0.36 10^3/uL (0.30-0.80) 03/20/19 12:15 Absolute Eos (auto) 0.10 10^3/uL (0.03-0.40) 03/20/19 12:15 Absolute Basos (auto) 0.04 10^3/uL (0.02-0.10) 03/20/19 12:15 Absolute Nucleated RBC 0.00 10^3/uL (0-0.01) 03/20/19 12:15 Immature Gran % 0.2 % (0.0-1.1) 03/20/19 12:15 Immature Gran # 0.01 10^3/uL (0.00-0.10) 03/20/19 12:15 Sodium 121 mEq/L (135-145) L 03/20/19 12:15 Potassium 5.0 mEq/L (3.5-5.2) 03/20/19 12:15 Chloride 87 mEq/L (97-110) L 03/20/19 12:15 Carbon Dioxide 18 mEq/l (22-31) L 03/20/19 12:15 Anion Gap 16 mEq/L (6-14) H 03/20/19 12:15 BUN 33 mg/dL (7-23) H 03/20/19 12:15 Creatinine 0.9 mg/dL (0.6-1.0) 03/20/19 12:15 Estimated GFR 59 03/20/19 12:15 Glucose 83 mg/dL (70-100) 03/20/19 12:15 Calcium 9.3 mg/dL (8.5-10.4) 03/20/19 12:15 Total Bilirubin 1.1 mg/dL (0.1-1.4) 03/20/19 12:15 Conjugated Bilirubin 0.3 mg/dL (0.0-0.5) 03/20/19 12:15 Unconjugated Bilirubin 0.8 mg/dL (0.0-1.1) 03/20/19 12:15 AST 58 IU/L (14-46) H 03/20/19 12:15 ALT 35 IU/L (9-52) 03/20/19 12:15 Alkaline Phosphatase 103 IU/L (38-126) 03/20/19 12:15 POC Troponin I 1.54 ng/mL (0.00-0.08) H 03/20/19 13:22 NT-Pro-B Natriuret Pep 93896 pg/mL (0-450) H 03/20/19 12:15 Total Protein 7.4 g/dL (6.3-8.2) 03/20/19 12:15 Albumin 4.1 g/dL (3.5-5.0) 03/20/19 12:15 Lipase 37 IU/L (23-300) 03/20/19 12:15 Urine Color PALE YELLOW 03/20/19 12:45 Urine Appearance CLEAR 03/20/19 12:45 Urine pH 5.0 (5.0-7.5) 03/20/19 12:45 Ur Specific [place] 1.006 (1.002-1.030) 03/20/19 12:45 Urine Protein NEGATIVE (NEGATIVE) 03/20/19 12:45 Urine Ketones TRACE (NEGATIVE) H 03/20/19 12:45 Urine Blood 2+ (NEGATIVE) H 03/20/19 12:45 Urine Nitrate NEGATIVE (NEGATIVE) 03/20/19 12:45 Urine Bilirubin NEGATIVE (NEGATIVE) 03/20/19 12:45 Urine Urobilinogen NEGATIVE EU (0.2-1.0) 03/20/19 12:45 Ur Leukocyte Esterase NEGATIVE (NEGATIVE) 03/20/19 12:45 Urine RBC 1-3 /hpf (0-3) 03/20/19 12:45 Urine WBC 1-3 /hpf (0-3) 03/20/19 12:45 Ur Epithelial Cells TRACE /lpf (NONE-1+) 03/20/19 12:45 Urine Bacteria TRACE /hpf (NONE SEEN) H 03/20/19 12:45 Urine Mucus TRACE /lpf (NONE-1+) 03/20/19 12:45 Urine Glucose NEGATIVE (NEGATIVE) 03/20/19 12:45 Assessment & Plan Plan: 88 y/o female w/systolic CHF w/ischemic cardiomyopathy, severe unstentable CAD, DM2 presents w/ 4 days worth of vomiting and diarrhea. Noted elevated initial troponin and BNP. Her vital signs are the following: BP 124/66, HR 75, Resp 16 , Temp 36.2, 95%RA. #Abdominal pain (Acute) #CHF (congestive heart failure) (Acute) #Elevated troponin (Acute) #Hyponatremia (Acute) #Starvation acidosis -Received 1L NS in ED; will cont D5W LR x 1 bag overnight and recheck CBC/BMP in AM. In hypovolemic state d/t emesis and diarrhea + poor PO intake -GI pathogen panel pending -Anti-emetics PRN -Cont tele/PCU monitoring -Spoke to Lilly Saucedo who will speak to the pt and family re: cardiac concerns and prognosis -Palliative care consult for goals of care -Cycle trop x 2 Q6H -PT/OT to evaluate and treat -Daily weights -ISS while in house, cont home glargine -Cont all home medication except for furosemide for hypovolemic state Diet: Clears, may transition to cardiac diet later tonight if tolerating clears OK VTE ppx: Hep subq Code: Full Dispo: Admit to obs
--- NOTE | 2019-03-20 16:27 | HOSPPROG ---
Hospitalist Progress Note Assessment/Plan: Patient seen and examined with interpreter deaf, discussed with Alejandrina Montalvo. I agree with her H&P. 88-year-old female with severe, essentially untreatable heart disease presents with 4 days of nausea vomiting and dehydration. I discussed her heart disease, she does not seem to understand that this is incurable. She tells me it is better now that she is not having any more angina. We will not escalate her cardiac care, and she is not having any chest pain. This was discussed with Lilly Saucedo. We will treat her with cautious IV fluids, antiemetics, and advance her diet. We will have palliative care see her while she is here. Objective: Vital Signs Temp Pulse Resp BP Pulse Ox 36.9 C 69 16 126/70 H 99 03/20/19 15:44 03/20/19 15:20 03/20/19 15:20 03/20/19 15:20 03/20/19 15:20 ICD10 Worksheet Patient Problems: Problems Problem Status Onset Hyponatremia Acute Elevated troponin Acute CHF (congestive heart failure) Acute Abdominal pain Acute Chronic Disease Mgmt/Transitional Care Acute Hyperglycemia due to type 2 diabetes mellitus Acute
[2019-03-20] MEDS: INSULIN LISPRO 100 UNIT/ML SC SCH (17:57)
[2019-03-20] MEDS: HEPARIN 5,000 UNIT/0.5 ML INJ SC SCH (21:00)
[2019-03-21] MEDS: ACETAMINOPHEN 325 MG TAB PO PRN ×4 (00:36→15:33)
[2019-03-21 04:24] LABS: PLATELET COUNT 293 10^3/uL (150-400)
[2019-03-21] MEDS: HEPARIN 5,000 UNIT/0.5 ML INJ SC SCH ×2 (04:28→14:18)
[2019-03-21] MEDS ORDERED: LEVOTHYROXINE 88 MCG TAB PO SCH (06:00)
[2019-03-21] MEDS: INSULIN LISPRO 100 UNIT/ML SC SCH ×2 (07:53→13:59)
[2019-03-21] MEDS ORDERED: INSULIN GLARGINE 100 UNITS/ML UNIT SC SCH (09:00)
[2019-03-21] MEDS ORDERED: CITALOPRAM 20 MG TAB PO SCH (09:00)
[2019-03-21] MEDS ORDERED: ASPIRIN EC 81 MG TAB PO SCH (09:00)
[2019-03-21] MEDS ORDERED: CALCITONIN 200 UNITS/SPRAY INH NS SCH (09:00)
[2019-03-21] MEDS ORDERED: FAMOTIDINE 20 MG TAB PO SCH (09:00)
[2019-03-21 11:10] VITALS: BP 125/67
[2019-03-21] MEDS ORDERED: SPIRONOLACTONE 25 MG TAB PO SCH (13:00)
[2019-03-21] MEDS ORDERED: METOPROLOL SUCCINATE XR 25 MG TAB PO SCH (13:00)
[2019-03-21] MEDS ORDERED: LISINOPRIL 10 MG TAB PO SCH (13:00)
--- NOTE | 2019-03-21 13:46 | PDCARPN ---
Cardiology Progress Note Chief Complaint: End-stage CHF Assessment/Plan: Assessment: 88F PMH PVD, DM, htn, hypoT, PVD history [place] L fem[place]pop [place] [address] [place]ado. Recent history includes diagnosis of severe SCHF. Echo from February admission shows LVEF 20-25%, mod MR, RVSP 40. Nuclear stress test was then obtained and showed EF 24% with extensive infarct involving inf apex, inf/ant apex, and inferoseptal wall. Subsequent [facility] with severe LM disease , occluded RCA/LAD, severe LCx disease with multiple lesions. #. SCHF: NYHA FC III-IV [facility] with severe disease and nothing amenable to PCI not a surgical candidate met with patient, her 2 daughters and son and one son by phone and discussed prognosis they aagree to home on hospice 20 minutes spent. Plan: - DC today with hospice. - Can d/c ASA, statin, Lisinopril. Would recommend she stay on Metoprolol and Lasix and Spironolactone. 03/21/19 13:42 Reviewed/Discussed With: family, hospitalist (Dr. Hdz) Objective: Vital Signs (8 Hrs) Temp Pulse Resp BP Pulse Ox 03/21/19 11:08 97.7 F 78 19 125/67 H 97 03/21/19 07:57 97.4 F 73 11 L 137/72 H 97 Intake/Output (24 Hrs) 03/20/19 03/21/19 03/22/19 05:59 05:59 05:59 Intake Total 1600 Output Total 750 Balance 850 Intake: Oral (ml) 600 IV Infused (ml) 1000 D5w Lr 1,000 ml @ 100 mls 1000 /hr IV CONT YOLI Rx#: [id number] Output: Urine (ml) 750 Toilet 750 Other: Weight 41.1 kg Number of Voids Toilet 1 Result Diagrams: 03/21/19 03:20 03/21/19 03:20 Cardiac Labs: Cardiac Lab Results (72 Hrs) 03/21/19 03/20/19 03:20 19:11 Troponin I 1.100 H 1.090 H - Physical Exam Constitutional: no apparent distress Eyes: PERRL, anicteric sclera Neurologic: AAOx3 Psychiatric: cooperative, interactive ICD10 Worksheet Patient Problems: Problems Problem Status Onset Abdominal pain Acute CHF (congestive heart failure) Acute Elevated troponin Acute Hyponatremia Acute Chronic Disease Mgmt/Transitional Care Acute Hyperglycemia due to type 2 diabetes mellitus Acute
--- NOTE | 2019-03-21 14:52 | ASMTLACE ---
LACE Length of stay for Answers: 1 day current admission Acuity / Level of Answers: Yes Care: Did the patient have an inpatient admission? Comorbidities - select Answers: Congestive heart failure all that apply Coronary Artery Disease Diabetes (uncontrolled or controlled) Other Notes: HTN; Hypothyroid # of Emergency department Answers: 1-2 visits in the last 6 months Score: 11 Date Signed: 03/21/2019 02:51 PM Electronically Signed By:Jacquie Ortiz RN
--- NOTE | 2019-03-21 14:54 | ASMTDCNOTE ---
Case Management Discharge Discharge Order Complete? Answers: Yes Patient to Obtain Answers: via Family Medications Transportation Arranged Answers: Family/Friends Faxed Final Orders Answers: Yes Family Notified Answers: Yes Discharge Comments Notes: Palliative care consult today - familiy agreed to transition to hospice. [facility] rep here and accepted patient. They will send an RN to the home at 1800 tonight. Orders sent. [facility] updated. Family to transport home. Date Signed: 03/21/2019 02:53 PM Electronically Signed By:Jacquie Ortiz RN
--- NOTE | 2019-03-22 08:26 | PDDCSUM ---
Discharge Summary Discharge Summary: Discharge date: 03/21/19 88 y/o female w/systolic CHF w/ischemic cardiomyopathy, severe unstentable CAD, DM2 admitted w/ 4 days worth of vomiting and diarrhea. She was admitted. Given IVF. She has resolution of her vomiting and diarrhea. She had consultation by the Cardiology team. Her overall prognosis is very poor. A hospice consult was obtained and the family has decided on home hospice. She is being d/c to home with hospice. Non essential meds were discontinued. DDX #Abdominal pain (Acute) #CHF (congestive heart failure) (Acute) #Elevated troponin (Acute) due to severe unstentable CAD #Hyponatremia (Acute) #Starvation acidosis #DM #N/V #Diarrhea Exam: NAD AAOX3 NORMAL WORK OF BREATHING PEERLA EOMI MEDS: SEE MED REC TOTAL TIME SPENT ON D/C IS 35 MINS
== END 2019-03-21 15:56 | disposition hospice, home (50) ==
LOC: INTOOBSV 14:02 → F2W 16:36
PROVIDERS: ADMIT Student in an Organized Health Care Education/Training Program; ATTEND Family Medicine
DX: R10.13 Epigastric pain (principal); R11.2 Nausea with vomiting, unspecified; R19.7 Diarrhea, unspecified; I50.21 Acute systolic (congestive) heart failure; I25.5 Ischemic cardiomyopathy; I25.10 Atherosclerotic heart disease of native coronary artery without angina pectoris; E87.1 Hypo-osmolality and hyponatremia; E11.10 Type 2 diabetes mellitus with ketoacidosis without coma; Z51.5 Encounter for palliative care; Z66 Do not resuscitate
CPT/HCPCS: 71045; 74177; 92523; 96361; 96372; 96374; 96375; 96376; 97161; 97165; 99285; G0378; J1644; J1815; J2405; J3010; Q9967; 84484-ER